=== PATIENT | male | born 1950 | race Caucasian/White ===

== ENCOUNTER 2016-11-10 22:32 | Emergency (ER) | payer MEDICARE, MEDICAID ==
[~2016-11-10] VITALS: Ht 180.3 cm; Wt 77.3 kg
[~2016-11-10 22:32] MED LIST: CARI350T PO; CLON1TAB PO; GABA-502 PO; MORP30TA PO; OXYC30TA48 PO; QUET200T PO
[2016-11-10 22:35] VITALS: BP 97/61; PULSE 136; RESP 16; O2SAT 98
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
[2016-11-10] MEDS ORDERED: 0.9% Sodium Chloride 1,000 ML IV ONE (22:54)
[2016-11-10] MEDS ORDERED: HYDROmorphone 1 mg/mL Inj IVPUSH ONE (23:00)
[2016-11-10 23:06] LABS: BASOPHILS % (AUTO) 0.4 % (0-3); EOSINOPHILS % (AUTO) 0.4 % (0-5); MONOCYTES % (AUTO) 7.8 % (4-12); Mean Corpuscular Hemoglobin 29.5 pg (27.0-35.0); Mean Corpuscular Volume 96.1 fL (81-100); NEUTROPHILS % (AUTO) 69.7 % (40-74); Platelet Count 115 bil/L (150-400)
[2016-11-10 23:31] LABS: INR 1.15 ratio
[2016-11-10 23:43] LABS: Magnesium 1.9 mg/dL (1.6-2.6)
[2016-11-11 01:23] VITALS: BP 102/62; PULSE 108; RESP 16; O2SAT 96
--- NOTE | 2016-11-11 08:00 | DRSVH ---
PROCEDURE: X-RAY CHEST ONE VIEW, PORTABLE ([id number]) INDICATIONS: fall, trauma TECHNIQUE: One view of the chest was acquired. COMPARISON: 10/17/2016 FINDINGS: Surgical changes and devices: Median sternotomy. Multiple surgical clips over the left mediastinum. Lungs and pleura: Consolidation in the right midlung field is considerably smaller. Atelectasis/infil trate in the left lower lobe is also improved. Mediastinum: Mediastinal contours appear normal. Heart size is normal. Bones and chest wall: No suspicious bony lesions. No displaced right rib fractures seen. Overlying soft tissues appear unremarkable. IMPRESSION: Improving right middle lobe and left lower lobe pneumonia. Postoperative changes. No acut e posttraumatic findings. Right-sided rib series may be of additional value. Dictated by: John Guevara M.D. on 11/11/2016 at 7:58 Approved by: John Guevara M.D. on 11/11/2016 at 7:58
--- NOTE | 2016-11-11 09:35 | DRSVH ---
PROCEDURE: CT CHEST, ABDOMEN AND PELVIS WITH CONTRAST ([id number]) INDICATIONS: fall, right flank & lateral abdomen trauma TECHNIQUE: After the administration of intravenous contrast, 5 mm thick sections acquired from the lung apices t o the symphysis. 5 mm thick coronal and sagittal reformats were acquired. Additional 7 mm thick cor onal maximum intensity projection (MIP) reformats acquired through the lungs. Optional 10-minute del ayed imaging may be performed from the kidneys to the bladder. For radiation dose reduction, the fol lowing was used: automated exposure control, adjustment of mA and/or kV according to patient size. COMPARISON: [facility], CT, CT ANGIO CHEST PE, 10/17/2016, 19:55. [facility], CT, CT CHEST ABD PELVIS W CON, 08/23/2016, 20:58. FINDINGS: Image quality: Excellent. CHEST: Lungs: There is moderate centrilobular emphysema with an apical predominance. Consolidation and volum e loss is present at the inferior aspect of the right upper lobe. The right hilar mass is decreased i n size when compared to study dated 08/23/16. No pulmonary laceration or contusion. There is a small low density right pleural effusion similar in size to the study dated 10/17/16. Mediastinum: No mediastinal hematomas. Heart size is normal. No pericardial effusion. Thoracic ao rta and pulmonary arteries demonstrate normal size and enhancement. Scattered atheromatous calcificat ions are present within the aortic arch. The multiple large mediastinal and right hilar lymph nodes v isualized on the study dated 08/23/16 have markedly decreased in size. For example, a subcarinal lymp h node now measures 1.5 cm in diameter and previously measured 3.4 cm in diameter. Esophagus is sudha l in caliber. No hiatal hernia. Chest wall: Patient is status post median sternotomy. No rib fractures. No subcutaneous emphysema. No axillary or supraclavicular adenopathy. Thyroid gland is unremarkable. ABDOMEN: Solid organs: The liver and spleen are normal in size. The spleen demonstrates normal enhancement. Th ere is a marked decrease in the size and number of the multiple centrally hypodense, rim-enhancing le sions within the liver. Gallbladder is unremarkable. Biliary system is non-dilated. Pancreas enhanc es normally, without transection. No adrenal hematomas. Both kidneys enhance normally, without hydr onephrosis or lacerations. Peritoneum and bowel: No free fluid or air. Unenhanced bowel loops demonstrate normal wall thicknes s and caliber. Nodes and vessels: No retroperitoneal or mesenteric adenopathy. Aorta and inferior vena cava are no rmal in size and enhancement. There are scattered atheromatous calcifications throughout the aorta an d iliac arteries bilaterally. IVC filter is redemonstrated. Miscellaneous: No ventral hernias. PELVIS: Genitourinary: Bladder wall thickness is normal. Miscellaneous: No inguinal hernias or adenopathy. Bones: Pelvic ring and hip joints appear intact. No vertebral compression fractures. The bilateral femoral heads have a patchy, sclerotic appearance which is new when compared with the study dated . No deformity of the femoral heads. IMPRESSION: 1. No acute cardiopulmonary or intra-abdominal trauma. 2. Decreased size of the right perihilar mass, decreased right hilar and mediastinal adenopathy, and decreased hepatic hypodense lesions suggesting response to therapy. 3. New bilateral sclerotic appearance of the femoral heads. Differential considerations include early avascular necrosis and bony metastasis. Nonemergent MRI of the pelvis with and without contrast may be helpful to further characterize this finding. Dictated by: Starla Medley M.D. on 11/11/2016 at 9:32 Approved by: Starla Medley M.D. on 11/11/2016 at 9:32
[2017-03-29] MEDS ORDERED: MORP15TA PO (11:41)
== END 2016-11-11 01:24 | disposition home or self-care (01) ==
LOC: SED 22:32
DX: S20.211A Contusion of right front wall of thorax, initial encounter (principal); W01.198A Fall on same level from slipping, tripping and stumbling with subsequent striking against other object, initial encounter; Y92.009 Unspecified place in unspecified non-institutional (private) residence as the place of occurrence of the external cause; Y93.89 Activity, other specified; Y99.8 Other external cause status; C34.90 Malignant neoplasm of unspecified part of unspecified bronchus or lung; I10 Essential (primary) hypertension; I48.0 Paroxysmal atrial fibrillation; C22.9 Malignant neoplasm of liver, not specified as primary or secondary; I25.2 Old myocardial infarction; I25.10 Atherosclerotic heart disease of native coronary artery without angina pectoris; F17.200 Nicotine dependence, unspecified, uncomplicated; Z86.711 Personal history of pulmonary embolism; Z87.828 Personal history of other (healed) physical injury and trauma; Z86.718 Personal history of other venous thrombosis and embolism; Z95.1 Presence of aortocoronary bypass graft; Z88.6 Allergy status to analgesic agent; Z88.0 Allergy status to penicillin; Z88.8 Allergy status to other drugs, medicaments and biological substances
CPT/HCPCS: 36415; 71010; 71260; 74177; 80053; 83735; 85025; 85610; 93005; 96361; 96374; 99285; J1170; J7030; Q9967

== ENCOUNTER 2017-04-12 20:40 | Inpatient (IN) | payer MEDICARE, MEDICAID ==
[~2017-04-12] VITALS: Ht 180.3 cm; Wt 64.9 kg
[~2017-04-12 20:40] MED LIST changes: +MORP15TA PO
[2017-04-12 20:49] VITALS: BP 118/70; PULSE 99; RESP 20; O2SAT 96
--- NOTE | 2017-04-12 21:28 | ED.REPORT ---
HPI-General Illness Date of Service Apr 12, 2017 ED Provider: Thony Lo MD Patient is a 66 year old male with a history of stage 4 lung cancer with liver metastases, CABG, COPD and CHF who presents to the ED complaining of worsening back pain for the past 5 days. Associated symptoms include pleuritic chest pain , fever, intermittent hemoptysis and hematemesis, nausea and leg swelling. He describes the pain as stabbing and that he has tried using his pain medication but it has not been helping. Patient recently finished his chemotherapy treatment. Nursing Notes Stated Complaint: BACK PAIN Chief Complaint: Respiratory Complaints Nursing Notes Reviewed: Yes Allergies: Coded Allergies: NSAIDS (Non-Steroidal Anti-Inflamma (Verified Allergy, Severe, Rash, 10/17) Penicillins (Verified Allergy, Severe, Rash, 10/17/16) aspirin (Verified Allergy, Mild, 10/17/16) CAUSES LIPS TO SWELL cyclobenzaprine HCl (Verified Adverse Reaction, Intermediate, Nausea, Vomiting, 10/17/16) Scheduled Carisoprodol (Soma) 350 Mg Tablet 350 MG PO TID Gabapentin (Gabapentin) 300 Mg Capsule 300 PO HS Morphine Sulfate (Morphine Sulfate) 30 Mg Tablet 30 MG PO BID Morphine Sulfate (Morphine Sulfate) 15 Mg Tablet 15 MG PO BID Quetiapine Fumarate (Seroquel) 200 Mg Tablet 250-300 MG PO HS Scheduled PRN Clonazepam (Klonopin) 1 Mg Tablet 1 MG PO QID PRN PRN For Anxiety Oxycodone (Roxicodone) 30 Mg Tablet 30 MG PO Q3HR PRN PRN For Pain General Time Seen by MD: 21:27 Chief Complaint Back pain Hx Obtained From: Patient Arrived By: Walk-in Sudden in Onset?: No Onset Occurred: 5 days ago Symptom Duration: Since onset Location: : Back: Chest Quality: Stabbing Severity: Current: Moderate Associated with: Reports: Cough, Nausea, Vomiting Recent Healthcare: Recent doctor visit, Recent hospitalization Similar Sx Previous: No Past Medical History Past Medical History Notes: Seen 08/22 in ED for A Flutter, CT scan of the chest positive for large right perihilar mass highly suspicious for primary bronchogenic carcinoma with mediastinal lymphadenopathy and out of maladies highly suspicious for hepatic metastatic disease Past Medical History Small cell carcinoma Pulmonary embolism 2010 myocardial infarction- coronary artery disease paroxysmal atrial fibrillation previously on Warfarin 11/11/2016 PTSD Anxiety prostatitis Back Injury (traumatic back injury with herniated disc) history of lung cancer in 2011 - did not require treatment per patient DVT Reports: Hypertension Reports: Atrial flutter Past Surgical History back times 2, shoulder times 3, hand times 6, elbow aortic valve replacement Reports: Appendectomy, CABG Smoking History Light Tobacco Smoker Social History Denies using IV drugs Other Social History: Good social support, , College student Ambulatory Status Independent Review of Systems Full Review of Systems Constitutional: Reports: Fever, Malaise Respiratory: Reports: Hemoptysis, Pleuritic pain Cardiovascular: Reports: Chest pain GI: Reports: Hematemesis, Nausea, Vomiting, Denies: Abdominal pain Musculoskeletal: Reports: Back pain, Extremity swelling Skin: Denies Rash Complete sys rev & neg: except as marked. Physical Exam Vital Signs Vital Signs Date Time Temp Pulse Resp B/P Pulse Ox O2 Delivery O2 Flow Rate FiO2 04/12/17 22:19 93 18 95 Room Air 04/12/17 21:51 37.5 95 20 119/61 98 Room Air 04/12/17 20:49 37.5 99 20 118/70 96 Room Air Initial VS: Reviewed General/Constitutional: Awake, Alert, Well appearing Appearance / Presentation: Positive: Frail Head / Eyes: Atraumatic, Normocephalic, PERRL, EOMI Respiratory / Chest: Atraumatic, No respiratory distress rhonic in both lung bases, right worse than the left splinting on the right Cardiovascular: Heart rate NL, Regular rhythm, Heart sounds NL Abdomen: Atraumatic, Soft, Non-tender Lower Extremity / Pelvis / MS: Atraumatic, Inspection NL trace edema Skin: Atraumatic, Color NL, No rash, Warm, Dry Neurologic: Oriented X3, Speech NL, No motor deficits, No sensory deficits Psychiatric: Affect NL, Mood NL Interpretation & Diagnostics Lab Results Interpretation Result Diagram: 04/12/17222404/12/17 222 Test 04/12/17 22:25 04/12/17 22:50 White Blood Count 16.0th/mm3 (3.8-10.1) Red Blood Count 3.82mil/mm3 (4.40-5.80) Hemoglobin 11.2g/dL (13.8-17.2) Hematocrit 35.3% (41.0-50.0) Mean Corpuscular Volume 92.4fL (81-100) Mean Corpuscular Hemoglobin 29.3pg (27.0-35.0) Mean Corpuscular Hemoglobin Concent 31.7% (32.0-37.0) Red Cell Distribution Width 14.7% (12.3-15.4) Platelet Count 511bil/L (150-400) Neutrophils (%) (Auto) 76.3% (40-74) Lymphocytes (%) (Auto) 9.2% (14-46) Monocytes (%) (Auto) 13.5% (4-12) Eosinophils (%) (Auto) 0.2% (0-5) Basophils (%) (Auto) 0.1% (0-3) Band Neutrophils % 1% (1-5) Prothrombin Time 11.9sec (8.1-12.5) Prothromb Time International Ratio 1.11ratio Activated Partial Thromboplast Time 32.8sec (22.8-33.0) D-Dimer 2.19mg/L FEU (<0.50) Sodium Level 138mEq/L (134-144) Potassium Level 4.4mEq/L (3.5-5.2) Chloride Level 95mEq/L (97-108) Carbon Dioxide Level 27mmol/L (18-29) Blood Urea Nitrogen 29mg/dL (8-27) Creatinine 0.80mg/dL (0.76-1.27) Estimat Glomerular Filtration Rate 103mL/min (>59) Glucose Level 108mg/dL (60-99) Lactic Acid Level 2.4mmol/L (0.4-2.0) Calcium Level 9.0mg/dL (8.5-10.1) Magnesium Level 2.0mg/dL (1.6-2.6) Total Bilirubin 0.2mg/dL (0.0-1.2) Aspartate Amino Transf (AST/SGOT) 15U/L (0-50) Alanine Aminotransferase (ALT/SGPT) 14U/L (0-44) Alkaline Phosphatase 136U/L (25-160) Troponin T < 0.010ug/L (0.0-0.011) Pro-B-Type Natriuretic Peptide 1606pg/mL (0-376) Total Protein 7.4g/dL (6.4-8.4) Albumin 2.8g/dL (3.4-5.0) Procalcitonin 0.23ng/mL (0.00-0.08) Urine Color Yellow (YELLOW) Urine Appearance Clear (CLEAR,HAZY) Urine pH 7.5 (5.0-8.0) Urine Specific [place] 1.026 (1.003-1.035) Urine Protein Negativemg/dL (NEG,TRACE) Urine Glucose (UA) Negativemg/dL (NEGATIVE) Urine Ketones Negativemg/dL (NEGATIVE) Urine Occult Blood Negative (NEGATIVE) Urine Nitrite Negative (NEGATIVE) Urine Bilirubin Negative (NEGATIVE) Urine Urobilinogen Normalmg/dL (NORMAL) Urine Leukocyte Esterase Negative (NEGATIVE) Urine RBC 0-2/hpf (0-2) Urine WBC 0-5/hpf (0-5) Urine Epithelial Cells Occasional/hpf (NONE-MOD) Urine Crystals Amorphous phosphates Urine Bacteria None/hpf (NONE-FEW) Urine Hyaline Casts None/lpf (NONE) Urine Granular Casts None seen (NONE SEEN) Urine Waxy Casts None seen (NONE SEEN) Urine Red Blood Cell Casts None seen (NONE SEEN) Urine White Blood Cell Casts None seen (NONE SEEN) Urine Mucus Present (None Seen) Urine Trichomonas None seen (NONE SEEN) Urine Yeast None (NONE SEEN) Urine Culture Reflexed Not indicated ECG Interpretation ECG Interpretation: probable left atrial enlargement Time: 22:04 Interpreted by: ED physician Normal ECG Interpretation: Normal rate (93), Normal sinus rhythm X-Ray Chest Interpretation Chest Xray Interpretation: much more infiltration on right upper and mid lung since last x-ray View: Portable, 1 view Interpretation / Wet Read by: Wet read ED physician Re-Eval/Medical Decision Med Decision/Clinical Course 66-year-old recent diagnosis of stage IV lung cancer with liver metastases, presents with pleuritic right flank and rib pain, cough which is productive, and x-ray which shows fairly extensive infiltration. The extensive nature of his infiltration is new and reasonably accounts for his pain. No neurologic symptoms accompanying the back pain. Doubt new bony metastases, as he has recently been evaluated fully. Admitted now for pneumonia with potential hospital-acquired etiology. Begun with Levaquin, vancomycin, and cefepime, given penicillin allergy. He has uncontrolled pain at this point and was begun with Dilaudid in the emergency department. Subtherapeutic INR noted and needs heparinization pending reestablishment of adequate Coumadin dose. Transported stable and improved condition. Source of Hx: Old records Time of Eval: 22:34 Re-Evaluation/Progress Note: Discussed results and plan for admit. The patient understands and agrees to the plan. All questions were addressed. Consultation : Referral / Consult Name: Marleny Laura DO Consulted With: Hospitalist Call Returned at: 22:54 [employer] Engineer: Agrees with eval, Agrees with plan, Accepts admit Counseled Regarding: Diagnosis, Lab results, Need for admission Discharge & Departure Primary Impression: Pneumonia Pneumonia type: due to unspecified organism Laterality: right Lung location : upper lobe of lung Qualified Code: J18.1 - Lobar pneumonia, unspecified organism Additional Impressions: Lung cancer Laterality: unspecified laterality Lung location: unspecified part of lung Qualified Code: C34.90 - Malignant neoplasm of unspecified part of unspecified bronchus or lung Pleuritic chest pain Subtherapeutic international normalized ratio (INR) Disposition: ADMITTED TO HOSPITAL Discharge Condition All VS Reviewed: Yes Condition: Stable Referrals: Dayami Malagon MD (PCP) Ignacio Attestation Portions of this note were transcribed by Barbara Ca. I, Dr. Lo personally performed the history, physical exam and medical decision-making; I reviewed and confirmed the accuracy of the information in the transcribed note. Signed by: Ignacio Salas, 04/12/17 and 6245 copies to: Dayami Malagon MD, Christopher W MD Apr 12, 2017 21:28 Indu Ca Apr 12, 2017 21:36
[2017-04-12] MEDS ORDERED: 0.9% Sodium Chloride 1,000 ML IV ONE (21:34)
[2017-04-12] MEDS ORDERED: Ondansetron 2 mg/mL 2 mL Inj IVPUSH ONE (21:35)
[2017-04-12] MEDS ORDERED: Albuterol 2.5 mg/3 mL Inhalation Solution NEB ONE (21:35)
[2017-04-12] MEDS ORDERED: Albuterol-Ipratropium 3 mL Inhalation Solution NEB ONE (21:35)
[2017-04-12 21:51] VITALS: BP 119/61; PULSE 95; RESP 20; O2SAT 98
[2017-04-12] MEDS: HYDROmorphone 1 mg/mL Inj IVPUSH PRN ×3 (22:01→23:44)
[2017-04-12 22:19] VITALS: PULSE 93; RESP 18; O2SAT 95
[2017-04-12] MEDS ORDERED: Cefepime Inj 2 GM in IV Premix 1 EACH IV ONE (22:35)
[2017-04-12] MEDS ORDERED: levoFLOXacin Inj 750 MG in IV Premix 1 EACH IV ONE (22:35)
[2017-04-12] MEDS ORDERED: Vancomycin Dose per Pharmacist XX ONE (22:35)
[2017-04-12] MEDS ORDERED: Vancomycin Inj 1,500 MG in 0.9% Sodium Chloride 500 ML IV ONE (22:50)
[2017-04-12 22:53] LABS: BASOPHILS % (AUTO) 0.1 % (0-3); EOSINOPHILS % (AUTO) 0.2 % (0-5); MONOCYTES % (AUTO) 13.5 % (4-12); Mean Corpuscular Hemoglobin 29.3 pg (27.0-35.0); Mean Corpuscular Volume 92.4 fL (81-100); NEUTROPHILS % (AUTO) 76.3 % (40-74); Platelet Count 511 bil/L (150-400)
[2017-04-12 23:13] LABS: D-Dimer 2.19 mg/L FEU (<0.50); INR 1.11 ratio
[2017-04-12 23:27] LABS: APPEARANCE,URINE CLEAR (CLEAR,HAZY); COLOR,URINE YELLOW (YELLOW); OCCULT BLOOD,URINE NEGATIVE (NEGATIVE); PH,URINE 7.5 (5.0-8.0); UROBILINOGEN,URINE NORMAL (NORMAL)
[2017-04-12 23:39] LABS: TROPONIN T < 0.010 ug/L (0.0-0.011)
[2017-04-12 23:46] VITALS: BP 115/50; PULSE 102; RESP 20; O2SAT 92
[2017-04-12 23:57] VITALS: BP 115/50; PULSE 102; RESP 20; O2SAT 92
[2017-04-13 00:22] VITALS: BP 119/70; PULSE 101; RESP 20; O2SAT 94
--- NOTE | 2017-04-13 00:30 | NUR ---
Admission Note Pt admitted to [facility] from ER at 0020 on gurney, alert and orientedx3, back pain 8/10, Dilaudid given at ER prior to arrival. Cough intermittently green sputum per . Denies SOB at this time, denies n/v/fever/chills. BP 119/70, HR101 RR20, T36.9 SPO2 94% on RA. Course lung sounds and rhonchi bilaterally, right side worse, chest slightly asymmetric, right more prominent. HR regular, no murmur. Abdomen soft, mild tenderness at upper quadrant, BT active,trace edema at LEs. IV Cefepime and Levaquin running on arrival. with pt. Care ongoing.
--- NOTE | 2017-04-13 01:33 | NUR ---
Patient Left AMA Patient's requested to use hospital Oxygen in the patient's room. She has COPD and brings her own 4 tanks of O2 with her. After talked with charge nurse, ROBEL Fischer explained the hospital policy that patient's family are not allowed to use hospital Oxygen. Patient and family insisted, and the patient said "I am not going to stay here" if his cannot use hospital Oxygen. [employer] [facility] notified and came to further explained to the patient and family:Oxygen is considered prescribed treatment which it has to have doctor's prescription, and family cannot use he hospital oxygen unless they are admitted to the hospital. The patient requested RN to stop his IV antibiotic and insisted leaving AMA despite RN tried to convince him to stay by informing him the severity of his illness and risks of stopping treatments. AMA Paper work signed by the patient. IV removed, gauze dressing applied. The patient left the floor at 0105 with all his belongings. RN wheeled the patient out and assisted him into the car, family drove the patient home. Addendum: 04/13/17 at 0328 by ROSA DUNLAP RN Night hospitalist [place] informed by charge nurse.
--- NOTE | 2017-04-13 08:42 | DRSVH ---
PROCEDURE: X-RAY CHEST ONE VIEW, PORTABLE ([id number]) INDICATIONS: SHORTNESS OF BREATH, cough, lung caNCER in treatment TECHNIQUE: One view of the chest was acquired. COMPARISON: [facility], CT, CT CHEST ABD PELVIS W CON, 03/15/2017, 10:07. [facility], CR, XR CHEST 1VW (PORTABLE), 11/10/2016, 23:01. FINDINGS: Surgical changes and devices: Post median sternotomy. Lungs and pleura: Diffuse airspace opacity present involving the right upper lobe in this patient his tory of right hilar mass. Left lung is clear. Mediastinum: Mediastinal contours appear normal. Heart size is normal. Bones and chest wall: No suspicious bony lesions. Overlying soft tissues appear unremarkable. IMPRESSION: Dense opacification of the right upper lobe in this patient with history of right hilar m ass likely related to central obstruction with postobstructive atelectasis versus pneumonia. Correla te clinically. Dictated by: Melvin Danielle RRA Interpreted: Pham Woodard MD on 04/13/2017 at 8:38 Transcribed by: CLAUDIA on 04/13/2017 at 8:42 Approved by: Pham Woodard MD, PhD on 04/13/2017 at 11:25
[2017-04-13] MEDS ORDERED: QUET50TA55 PO (21:59)
[2017-04-13] MEDS ORDERED: ONDA4TAB6 PO (22:04)
[2017-04-13] MEDS ORDERED: PROC10TA PO (22:04)
== END 2017-04-13 01:10 | disposition left against medical advice (07) | DRG 194 ==
LOC: SED 20:40 → MPC 23:36
PROVIDERS: ADMIT Internal Medicine; ATTEND Internal Medicine
DX: J18.9 Pneumonia, unspecified organism (principal); C34.90 Malignant neoplasm of unspecified part of unspecified bronchus or lung; J44.9 Chronic obstructive pulmonary disease, unspecified; F17.210 Nicotine dependence, cigarettes, uncomplicated; Z88.0 Allergy status to penicillin; Z86.711 Personal history of pulmonary embolism; I25.2 Old myocardial infarction; Z95.1 Presence of aortocoronary bypass graft; Z99.81 Dependence on supplemental oxygen

== ENCOUNTER 2017-04-13 19:32 | Inpatient (IN) | payer MEDICARE, MEDICAID ==
[~2017-04-13] VITALS: Ht 180.3 cm; Wt 63.2 kg
[2017-04-13 20:02] VITALS: BP 113/72; PULSE 99; RESP 12; O2SAT 96
--- NOTE | 2017-04-13 20:06 | ED.REPORT ---
HPI-Dyspnea / Wheezing Date of Service Apr 13, 2017 ED Provider: Deangelo Tolbert MD Patient is a 66 year old male with a hx of lung cancer with mets and atrial flutter who presents to the ED after leaving the hospital AMA yesterday and diagnosed with pneumonia. Dr. Norwood recommended that he return. Associated symptoms include cough, sore throat, fever, and pleuritic pain. He denies SOB, nasal congestion, or any other symptoms. Patient was admitted last night for healthcare associated pneumonia and left because his could not stay since she requires oxygen. He has not been on antibiotics since leaving. He takes oxycodone and morphine daily. Nursing Notes Stated Complaint: CANCER, PNEUMONIA Chief Complaint: Respiratory Complaints Nursing Notes Reviewed: Yes Allergies: Coded Allergies: NSAIDS (Non-Steroidal Anti-Inflamma (Verified Allergy, Severe, Rash, 10/17) Penicillins (Verified Allergy, Severe, Rash, 10/17/16) aspirin (Verified Allergy, Mild, 10/17/16) CAUSES LIPS TO SWELL cyclobenzaprine HCl (Verified Adverse Reaction, Intermediate, Nausea, Vomiting, 10/17/16) Scheduled Carisoprodol (Soma) 350 Mg Tablet 350 MG PO TID Clonazepam (Klonopin) 1 Mg Tablet 1 MG PO QID Gabapentin (Gabapentin) 300 Mg Capsule 300 PO HS Morphine Sulfate (Morphine Sulfate) 30 Mg Tablet 30 MG PO BID TAKE WITH 15 MG TABLET (=45 MG TOTAL) Morphine Sulfate (Morphine Sulfate) 15 Mg Tablet 15 MG PO BID TAKE WITH 30 MG TABLET (=45 MG TOTAL) Ondansetron (Zofran) 4 Mg Tablet 4 MG PO QID STAGGER W/ COMPAZINE Prochlorperazine Maleate (Prochlorperazine) 10 Mg Tablet 10 MG PO QID STAGGER WITH ZOFRAN Quetiapine Fumarate (Seroquel) 200 Mg Tablet 200 MG PO HS TAKE WITH 50 MG TABLET (=250 MG TOTAL) Quetiapine Fumarate (Quetiapine Fumarate) 50 Mg Tablet 50 MG PO HS TAKE WITH 200 MG TABLET (=250 MG TOTAL) Scheduled PRN Oxycodone (Roxicodone) 30 Mg Tablet 30 MG PO Q3HR PRN PRN For Pain TAKES SCHEDULED General Time Seen by MD: 20:04 Chief Complaint Other (Pneumonia ) Hx Obtained From: Patient, Spouse Arrived By: Walk-in Recent Healthcare: Recent doctor visit, Recent hospitalization Similar Sx Previous: Yes Past Medical History Past Medical History Notes: Seen 08/22 in ED for A Flutter, CT scan of the chest positive for large right perihilar mass highly suspicious for primary bronchogenic carcinoma with mediastinal lymphadenopathy and out of maladies highly suspicious for hepatic metastatic disease Past Medical History Small cell carcinoma Pulmonary embolism 2010 myocardial infarction- coronary artery disease paroxysmal atrial fibrillation previously on Warfarin 11/11/2016 PTSD Anxiety prostatitis Back Injury (traumatic back injury with herniated disc) history of lung cancer in 2010 - did not require treatment per patient DVT Lung cancer with mets Reports: Hypertension Reports: Atrial flutter Past Surgical History back times 2, shoulder times 3, hand times 6, elbow aortic valve replacement Reports: Appendectomy, CABG Smoking History Light Tobacco Smoker Social History Denies using IV drugs Other Social History: Good social support, , College student Ambulatory Status Independent Review of Systems Constitutional: Reports: Fever Ears / Nose / Throat: Reports: Sore throat, Denies: Nasal congestion Respiratory: Reports: Non-productive cough, Pleuritic pain, Denies: Shortness of breath Complete sys rev & neg: except as marked. Physical Exam Initial Vital Signs Vital Signs (First) Date Time Temp Pulse Resp B/P Pulse Ox O2 Delivery O2 Flow Rate FiO2 04/13/17 20:02 36.9 99 12 113/72 96 Initial VS: Reviewed, Vital signs normal Head / Eyes: Atraumatic, Normocephalic Skin: Warm, Dry Neurologic: Alert, Oriented, Nonfocal Psychiatric: Mood/affect normal, Behavior normal, Normal thought content General/Constitutional: Awake, Alert, Well developed, Not toxic appearing Neck: Full range of motion Respiratory / Chest: Breath sounds = bilat, No respiratory distress Cardiovascular: Heart rate NL, Regular rhythm, Heart sounds NL, No gallop, No murmurs, No rubs Abdomen: Soft, Non-tender Interpretation & Diagnostics Lab Results Interpretation Result Diagram: 04/13/17204704/13/172047 Test 04/13/17 20:48 White Blood Count 10.7th/mm3 (3.8-10.1) Red Blood Count 3.77mil/mm3 (4.40-5.80) Hemoglobin 11.1g/dL (13.8-17.2) Hematocrit 35.2% (41.0-50.0) Mean Corpuscular Volume 93.4fL (81-100) Mean Corpuscular Hemoglobin 29.4pg (27.0-35.0) Mean Corpuscular Hemoglobin Concent 31.5% (32.0-37.0) Red Cell Distribution Width 14.9% (12.3-15.4) Platelet Count 455bil/L (150-400) Neutrophils (%) (Auto) 74.0% (40-74) Lymphocytes (%) (Auto) 10.3% (14-46) Monocytes (%) (Auto) 14.3% (4-12) Eosinophils (%) (Auto) 0.6% (0-5) Basophils (%) (Auto) 0.1% (0-3) Sodium Level 137mEq/L (134-144) Potassium Level 3.9mEq/L (3.5-5.2) Chloride Level 98mEq/L (97-108) Carbon Dioxide Level 27mmol/L (18-29) Blood Urea Nitrogen 19mg/dL (8-27) Creatinine 0.70mg/dL (0.76-1.27) Estimat Glomerular Filtration Rate 120mL/min (>59) Glucose Level 120mg/dL (60-99) Lactic Acid Level 1.5mmol/L (0.4-2.0) Calcium Level 9.1mg/dL (8.5-10.1) Magnesium Level 1.9mg/dL (1.6-2.6) Total Bilirubin 0.2mg/dL (0.0-1.2) Aspartate Amino Transf (AST/SGOT) 16U/L (0-50) Alanine Aminotransferase (ALT/SGPT) 13U/L (0-44) Alkaline Phosphatase 131U/L (25-160) Troponin T 0.010ug/L (0.0-0.011) Pro-B-Type Natriuretic Peptide 541.7pg/mL (0-376) Total Protein 6.8g/dL (6.4-8.4) Albumin 2.5g/dL (3.4-5.0) Procalcitonin 0.19ng/mL (0.00-0.08) Hold Bennett Top Tube Received (Received) ECG Interpretation ECG Interpretation: sinus rate 90 probable left atrial enlargement no acute changes Time: 20:29 Interpreted by: ED physician X-Ray Chest Interpretation Chest Xray Interpretation: IMPRESSION: Increased right upper lung dense opacification. Prior CABG. The prior CT scanning had raise concern for a mass lesion at the right hilum. The appearance may reflect post obstructive pneumonia or postobstructive retention of pulmonary secretions. Dictated by: Nabil Phan M.D. on 04/13/2017 at 20:54 Approved by: Nabil Phan M.D. on 04/13/2017 at 20:55 View: Portable, 1 view Interpretation / Wet Read by: Interpret - Radiologist Re-Eval/Medical Decision Med Decision/Clinical Course 66-year-old with known advanced lung cancer and she did emergency department last night with a healthcare associated pneumonia. He left the hospital AGAINST MEDICAL ADVICE but did receive antibiotic coverage including vancomycin and cefepime cefepime and Levaquin. He has now returned to the hospital and is interested in readmission. The patient appears stable at present, white count is improved he also has significant complaints of pain and history of opiate habituation. Blood cultures were obtained, I sought out culture results from last night which are not yet available, he was given cefepime, vancomycin and Levaquin again and will be admitted to the hospitalist service. Re-Evaluation/Progress #1: Time of Eval: 20:24 )( Re-Eval Resp / Chest: Breath sounds normal Re-Evaluation/Progress Note: Discussed plan for admission. Patient understands and agrees with plan. All questions addressed at this time. Re-Evaluation/Progress #2: Time of Eval: 21:42 )( Re-Eval Resp / Chest: Breath sounds normal Re-Evaluation/Progress Note: Rechecked pt who is sleeping. Discussed need for admission, Patient understands and agrees with plan. All questions addressed at this time. Consultation #1: Referral / Consult Name: Marleny Laura DO Consulted With: Hospitalist Call Returned at: 20:23 Unload Associate: Agrees with eval, Agrees with plan Note: Discussed pt case. Re-evaluate pt with intent to admit. Consultation #2: Referral / Consult Name: Marleny Laura DO Consulted With: Hospitalist Call Returned at: 21:38 Unload Associate: Will see patient, Agrees with eval, Agrees with plan, Accepts admit Note: Discussed pt case. Accepts admit. Counseled Regarding: Diagnosis, Need for admission Discharge & Departure Impression: Primary Impression: Pneumonia Pneumonia type: due to unspecified organism Laterality: unspecified laterality Lung location: unspecified part of lung Qualified Code: J18.9 - Pneumonia, unspecified organism Disposition: ADMITTED TO HOSPITAL Discharge Condition All VS Reviewed: Yes Condition: Stable Referrals: Dayami Malagon MD (PCP) Scribe Attestation Portions of this note were transcribed by Lalitha Galarza. I, Dr. Tolbert personally performed the history, physical exam and medical decision-making; I reviewed and confirmed the accuracy of the information in the transcribed note. Signed by: Lalitha Galarza 04/13/17, 2149 copies to: Dayami Malagon MD, Donald L MD Apr 13, 2017 20:06 LALITHA GALARZA Apr 13, 2017 20:17
--- NOTE | 2017-04-13 20:57 | DRSVH ---
PROCEDURE: X-RAY CHEST ONE VIEW, PORTABLE ([id number]) INDICATIONS: recent pneumonia TECHNIQUE: One view of the chest was acquired. COMPARISON: [facility], CT, CT CHEST ABD PELVIS W CON, 03/15/2017, 10:07. [facility], CR, XR CHEST 1VW (PORTABLE), 04/12/2017, 21:59. FINDINGS: Surgical changes and devices: Sternotomy wires, presumed prior CABG.. Lungs and pleura: No pleural effusions or pneumothorax. Lungs are abnormal with dense opacification right upper lung above the minor fissure, slightly increased. Mediastinum: Mediastinal contours appear normal. Heart size is normal. Bones and chest wall: No suspicious bony lesions. Overlying soft tissues appear unremarkable. IMPRESSION: Increased right upper lung dense opacification. Prior CABG. The prior CT scanning had raise concern for a mass lesion at the right hilum. The appearance may ref lect post obstructive pneumonia or postobstructive retention of pulmonary secretions. Dictated by: Nabil Phan M.D. on 04/13/2017 at 20:54 Approved by: Nabil Phan M.D. on 04/13/2017 at 20:55
--- NOTE | 2017-04-13 20:57 | PCM.HPMED ---
Subjective Date of Service Apr 13, 2017 Primary Provider: Admitting Physician: Primary Care Physician: Dayami Malagon MD Attending Physician: Admit Status: From the Emergency Department Chief Complaint: Shortness of breath History of Present Illness: This is a 66-year-old male with past medical history significant for extensive stage small cell lung cancer, coronary artery disease status post CABG, atrial fibrillation, congestive heart failure, COPD, and chronic pain with opioid dependence who presents for shortness of breath. The patient was most recently in the hospital yesterday evening at which time he left against medical advice. The patient returns today at the advice of his oncologist. The patient states that over the last 2 weeks he has developed progressively worsening shortness of breath and cough productive for yellow sputum. There are some streaks of blood in the cough now.. This is associated with subjective fevers, nausea, and several episodes of nonbloody vomiting. The patient states that he feels fatigued with decreased appetite and fluid intake. He also admits to achy and at times sharp chest pain located in the right side of his chest that is worse when he presses down on the area. Other areas of pain including his right upper quadrant of the abdomen (patient has known liver metastases). He denies any diarrhea, diaphoresis, numbness or tingling extremities. The patient is followed by [facility]. He has extensive small cell lung cancer with metastases to liver, lymph node, liver, bone, and brain. He is status post 6 cycles of palliative chemotherapy with carboplatin and etoposide and whole brain radiotherapy. His last CT chest on 03/15/2017 showed an unchanged appearance of right hilar mass as well as scarring/post obstructive right midlung, unchanged appearance of osseous metastatic disease, posterior right upper lobe nodular opacities. In the emergency department initial vital signs were temperature 6.9 Celsius, pulse 99, respiratory rate 12, blood pressure 113/72, satting at 96% on room air. On 04/12/2017 and lactic acid 2.4 and a procalcitonin 0.23. Laboratory values today were significant for WBC 10.7, hemoglobin 11.1, hematocrit 35.2, platelets 455. BUN 19, creatinine 0, glucose 120, troponin 0.0 and 0, pro BNP 541.7, albumin 2.5. In the emergency department on 04/12/2017 before he left against medical advice he was given a dose of Levaquin, cefepime, and vancomycin. Review of Systems: A comprehensive review of systems was conducted with the patient and found to be negative except as above in the History of Present Illness. Allergies Coded Allergies: NSAIDS (Non-Steroidal Anti-Inflamma (Verified Allergy, Severe, Rash, 10/17) Penicillins (Verified Allergy, Severe, Rash, 10/17/16) aspirin (Verified Allergy, Mild, 10/17/16) CAUSES LIPS TO SWELL cyclobenzaprine HCl (Verified Adverse Reaction, Intermediate, Nausea, Vomiting, 10/17/16) Home Medications Carisoprodol 50 mg 3 times a day Clonazepam 1 mg 4 times a day Gabapentin 3 mg at night Morphine sulfate 30 mg twice a day Morphine sulfate 15 mg twice a day Oxycodone 30 mg every 3 hours as needed Quetiapine fumarate 250mg PO HS. PMH Chronic pain syndrome with opioid dependence Extensive stage small cell lung cancer metastases to lymph nodes, liver, bone, and brain status post 6 cycles of palliative chemotherapy and whole brain radiotherapy Coronary artery disease status post CABG Atrial fibrillation Congestive heart failure COPD Pulmonary embolism 2010. DVT Hypertension PTSD. Last echocardiogram on 08/17/2011: Left normal size, ejection fraction 55-60%, base of the right ventricle appears mildly dilated, with ventricular systolic function normal, mild to moderate tricuspid regurgitation, left ventricular systolic pressure estimated 30-35 Hg, moderate pulmonic regurgitation. Surgical History CABG Aortic valve replacement Lumbar spine surgery Right shoulder surgery Family History Father: Emphysema. Social History Hx Alcohol Use: No Hx Substance Use: No Hx Tobacco Use: Yes (5-6 DAILY) Smoking Status: Light Tobacco Smoker Exam Vital Signs Vital Sign - Last Date Time Temp Pulse Resp B/P Pulse Ox O2 Delivery O2 Flow Rate FiO2 04/13/17 20:02 36.9 99 12 113/72 96 Exam General: Frail thin man,, appropriately interactive HEENT: Normocephalic, atraumatic. External ears without defect. Pupils equal, round, and reactive to light and accommodation. Anicteric sclerae, moist conjunctivae, and no lid lag. Dry oral mucosa. Neck: Supple with full range of motion. Cardiovascular: Regular rate and rhythm with no murmurs, rubs, or gallops appreciated Pulmonary: Clear to auscultation bilaterally with crackles and rhonchi throughout.. Normal respiratory effort with no use of accessory muscles. Abdomen: Bowel tones present. Soft, tender to palpation in right upper quadrant without rebound or guarding, nondistended Extremities: No clubbing, cyanosis, edema appreciated. Skin: Normal temperature, turgor, and texture; no rash, ulcers, or subcutaneous nodules appreciated. Neurological: Cranial nerves grossly intact. Normal muscle strength, tone, and bulk. Reflexes, coordination, and sensory function within normal limits. No known gait impairment. Psychiatric: Normal mood and affect. Alert and oriented to person, place, and time. Lab and Diagnostics X-Rays, CTs and MRIs Chest x-ray completed on 04/13/2017: IMPRESSION: Increased right upper lung dense opacification. Prior CABG. The prior CT scanning had raise concern for a mass lesion at the right hilum. The appearance may reflect post obstructive pneumonia or postobstructive retention of pulmonary secretions. Dictated by: Nabil Phan M.D. on 04/13/2017 at 20:54 Assessment & Plan This is a 66-year-old male with past medical history significant for COPD, CHF atrial fibrillation, coronary disease, and extensive small cell lung cancer who presents for shortness of breath, productive cough, subjective fevers, and right -sided chest pain. Chest x-ray is significant for right-sided pneumonia. Patient has a history significant for pulmonary embolus as well. Differential includes pneumonia, lung abscess, pulmonary embolus, worsening neoplasm, COPD exacerbation. Likely this is due to a pneumonia. Doubt pulmonary embolus as patient is afebrile and not tachycardic. Furthermore, his white blood cell count has improved since receiving doses of antibiotics yesterday evening point towards an infectious process. He also had a progressive time and that was elevated yesterday. Repeat pro calcitonin is pending. Healthcare associated pneumonia, present on admission, ongoing: -Patient has extensive small cell carcinoma of lung with multiple sites of metastasis. He is in a immunosuppressed state and we will cover with broad- spectrum antibiotics. -Patient does not meet SIRS criteria -Imaging has been reviewed and is concerning for PNA -Vancomycin (dosed by pharmacy), cefepime, Levaquin ordered. -Blood cultures, sputum cultures, Legionella antigen, strep pneumo antigen, lactic acid, pro calcitonin pending. -Fluids at 80 ml/hr. Chronic normocytic anemia, present on admission, ongoing: -On admit hemoglobin 11.1, hematocrit 35.2, MCV 93.4. Review of past medical records shows stability. -CBC in the a.m. Elevated blood glucose, present on admission, ongoing: -Admit blood glucose 120. -A1c ordered. History of congestive heart failure, present on admission: -Patient's family reports echocardiogram several months ago in [place] which showed heart failure. -We will order echocardiogram for morning. -Currently patient is dehydrated due to decreased appetite and fluid intake. -Daily weights ordered. Extensive stage small cell lung cancer metastases to lymph nodes, liver, bone, and brain, present on admission, ongoing: -He has extensive small cell lung cancer with metastases to liver, lymph node, liver, bone, and brain. Chronic pain with opiate dependence, present on admission, ongoing: -Continue home pain medications. Anxiety/depression, present on admission, ongoing: -Continue clonazepam. Patient is at risk for respiratory depression due to large opiate doses and clonazepam. Will monitor respiratory status. Naltrexone ordered if needed -Continue to monitor. Reported history of atrial fibrillation, present on admission, stable: -EKG shows sinus rhythm with rate of 90. Left atrial enlargement. Incomplete right bundle branch block. -Patient placed on to telemetry. DVT prophylaxis with heparin. Patient is admitted under inpatient status with expected length of stay greater than 2 midnights due to severity of presenting symptoms, risk of adverse event, and complexity of treatment plan. Attending Statement The patient was seen and examined together with house staff on 04/14/2017 and I agree with the history, exam and plan as outlined in the note above. Ponce Arana DO Apr 13, 2017 20:57 Marleny Laura DO Apr 14, 2017 03:56
[2017-04-13 21:00] LABS: BASOPHILS % (AUTO) 0.1 % (0-3); EOSINOPHILS % (AUTO) 0.6 % (0-5); MONOCYTES % (AUTO) 14.3 % (4-12); Mean Corpuscular Hemoglobin 29.4 pg (27.0-35.0); Mean Corpuscular Volume 93.4 fL (81-100); Platelet Count 455 bil/L (150-400)
[2017-04-13] MEDS: HYDROmorphone 1 mg/mL Inj IVPUSH PRN ×2 (21:10→22:24)
[2017-04-13 21:23] LABS: TROPONIN T 0.01 ug/L (0.0-0.011)
[2017-04-13] MEDS ORDERED: Vancomycin Inj 1,000 MG in IV Premix 1 EACH IV ONE (21:40)
[2017-04-13] MEDS ORDERED: levoFLOXacin Inj 750 MG in IV Premix 1 EACH IV ONE (21:40)
[2017-04-13] MEDS ORDERED: Cefepime Inj 2 GM in IV Premix 1 EACH IV ONE (21:40)
[2017-04-13] MEDS ORDERED: QUET50TA55 PO (21:59)
[2017-04-13 22:00] VITALS: BP 132/64; PULSE 94; RESP 16; O2SAT 98
[2017-04-13] MEDS ORDERED: ONDA4TAB6 PO (22:04)
[2017-04-13] MEDS ORDERED: PROC10TA PO (22:04)
[2017-04-13] MEDS ORDERED: Alum-Mag Hydrox-Simeth 30 mL Suspension PO PRN (22:15)
[2017-04-13] MEDS ORDERED: Polyethylene Glycol (PEG) 17 Gm Powder PO PRN (22:15)
[2017-04-13] MEDS ORDERED: fentaNYL-PF 50 mCg/mL 2 mL Inj IVPUSH PRN (22:15)
[2017-04-13] MEDS ORDERED: Albuterol-Ipratropium 3 mL Inhalation Solution NEB PRN (22:15)
[2017-04-13] MEDS: 0.9% Sodium Chloride 1,000 ML IV SCH (22:25)
[2017-04-13 22:48] VITALS: BP 107/58; PULSE 92; RESP 20; O2SAT 97
[2017-04-13 22:51] LABS: Magnesium 1.9 mg/dL (1.6-2.6)
[2017-04-13 23:15] VITALS: BP 111/72; PULSE 103; RESP 18; O2SAT 94
[2017-04-14] VITALS (8 sets, daily range): BP systolic 97–119; BP diastolic 58–69; PULSE 60–104; RESP 18–33; O2SAT 90–95
[2017-04-14] MEDS: Morphine ER 15 mg (MS Contin) Tablet PO SCH ×3 (00:10→20:16)
[2017-04-14] MEDS: Heparin 5,000 Unit/mL Inj SUBQ SCH ×4 (00:30→23:55)
--- NOTE | 2017-04-14 01:32 | PCM.CONPHA ---
Subjective Date of Service: Apr 14, 2017 Requesting Provider: Ponce Arana DO Shortness of breath Reason for Pharmacy Consult: Vancomycin Dosing Objective Vital Signs Date Time Temp Pulse Resp B/P Pulse Ox O2 Delivery O2 Flow Rate FiO2 04/13/17 23:15 37.2 103 18 111/72 94 Room Air 04/13/17 22:48 92 20 107/58 97 Room Air 04/13/17 22:00 94 16 132/64 98 Room Air 04/13/17 20:02 36.9 99 12 113/72 96 Weight (Kilograms): 62.900 Height (Feet): 5 Height (Inches): 11.00 Test 04/13/17 20:48 White Blood Count 10.7th/mm3 (3.8-10.1) Red Blood Count 3.77mil/mm3 (4.40-5.80) Hemoglobin 11.1g/dL (13.8-17.2) Hematocrit 35.2% (41.0-50.0) Mean Corpuscular Volume 93.4fL (81-100) Mean Corpuscular Hemoglobin 29.4pg (27.0-35.0) Mean Corpuscular Hemoglobin Concent 31.5% (32.0-37.0) Red Cell Distribution Width 14.9% (12.3-15.4) Platelet Count 455bil/L (150-400) Neutrophils (%) (Auto) 74.0% (40-74) Lymphocytes (%) (Auto) 10.3% (14-46) Monocytes (%) (Auto) 14.3% (4-12) Eosinophils (%) (Auto) 0.6% (0-5) Basophils (%) (Auto) 0.1% (0-3) Sodium Level 137mEq/L (134-144) Potassium Level 3.9mEq/L (3.5-5.2) Chloride Level 98mEq/L (97-108) Carbon Dioxide Level 27mmol/L (18-29) Blood Urea Nitrogen 19mg/dL (8-27) Creatinine 0.70mg/dL (0.76-1.27) Estimat Glomerular Filtration Rate 120mL/min (>59) Glucose Level 120mg/dL (60-99) Lactic Acid Level 1.5mmol/L (0.4-2.0) Calcium Level 9.1mg/dL (8.5-10.1) Magnesium Level 1.9mg/dL (1.6-2.6) Total Bilirubin 0.2mg/dL (0.0-1.2) Aspartate Amino Transf (AST/SGOT) 16U/L (0-50) Alanine Aminotransferase (ALT/SGPT) 13U/L (0-44) Alkaline Phosphatase 131U/L (25-160) Troponin T 0.010ug/L (0.0-0.011) Pro-B-Type Natriuretic Peptide 541.7pg/mL (0-376) Total Protein 6.8g/dL (6.4-8.4) Albumin 2.5g/dL (3.4-5.0) Procalcitonin 0.19ng/mL (0.00-0.08) Hold Bennett Top Tube Received (Received) Assessment/Plan Assessment/Plan A: * Vancomycin dosing by pharmacy for 66 y/o immunocompromised man with healthcare associated pneumonia * The patient received a 1000 mg IV vancomycin dose in the ED * He is also being started on levofloxacin and cefepime * His estimated CrCl is 92 mL/min (Cockcroft & Gault) * Estimated vancomycin half-life is 9 hours and estimated Vd is 44 liters P: * Starting vancomycin 1250 mg IV every 12 hours (first dose about 6 hours after ED dose) * Target a vancomycin trough range of 15 - 20 mcg/mL * Draw a trough level prior to the fourth dose Thank you. Pharmacy will continue to follow this patient. Mercedes Lindsey Apr 14, 2017 01:32
--- NOTE | 2017-04-14 03:26 | NUR ---
Admit note [place] [facility] [place]. Pt c/o pain to right back/ribs/chest area. Pt stating came to ER due to increased pain, stating was seen in ED last night and was diagnosed with pneumonia but could not stay in hospital. Placed nicotine patch on pt. Pt stating having vision changes. MD notified. MD came to assess pt. Pt shaky, stating having increased pain but vision changes seemed to improve. Pt stating need home medications. Medicated pt with meds as ordered and 25mcg IV fentanyl for pain 07/16. Pt resting in bed after medication admin. Continuous pulse ox in place. Pt on RA sating 88-91%. Call light within reach, frequent rounding, bed alarm in place, at bedside.
[2017-04-14 05:02] LABS: APPEARANCE,URINE CLEAR (CLEAR,HAZY); COLOR,URINE YELLOW (YELLOW); OCCULT BLOOD,URINE NEGATIVE (NEGATIVE); PH,URINE 6.5 (5.0-8.0); UROBILINOGEN,URINE NORMAL (NORMAL)
[2017-04-14 06:40] LABS: BASOPHILS % (AUTO) 0.1 % (0-3); EOSINOPHILS % (AUTO) 0.4 % (0-5); MONOCYTES % (AUTO) 15.1 % (4-12); Mean Corpuscular Hemoglobin 29.3 pg (27.0-35.0); Mean Corpuscular Volume 92.9 fL (81-100); NEUTROPHILS % (AUTO) 72.9 % (40-74); Platelet Count 426 bil/L (150-400)
[2017-04-14] MEDS ORDERED: Heparin 5,000 Unit/mL Inj SUBQ SCH (08:30)
[2017-04-14] MEDS ORDERED: Vancomycin Dose per Pharmacist XX SCH (08:30)
[2017-04-14] MEDS: 0.9% Sodium Chloride 1,000 ML IV SCH ×2 (12:47→23:54)
--- NOTE | 2017-04-14 13:02 | NUR ---
Palliative care note D/A: Palliative care referral received today from Dr. Pineda for assistance with goals of care conversation. Pt has been seen by Palliative Care in the recent past. In discussion with Dr. Land in 10/21- pt was not yet ready to fill out POLST but did indicate at that time that she did not want ventilator as well as did not want lengthy hospitalization. His overall wish was to at home, and also declined use of a feeding tube. Chart is reviewed for advanced directives. DPOA present in chart. First decision maker is pt spouse Jakob (please note not [place]) and her number is listed as [phone]. Secondary decision maker is Анна Snowden, of the same home address and her number is listed as [phone]. Lastly,if none of the above are available, then [place] Carroll is the third decision maker at [phone]. DPOA signed by pt and dated 10/20/2016. 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 During admit of 10/21, it was noted that pt pre-illness weight was 240 and had dropped to 165 on admit. 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 He has indicated that he has a history of TBI and PTSD. In 2010, he was followed at [facility] and had a mental health case manager with whom he felt connected. Pt lives with his spouse who is also disabled due to DM and her weight and is mostly wheelchair bound. Pt has considered his grand daughter and her boyfriend to be his caregivers. Per past notes, also present and living in the house were pt daughter, grand daughter and her boyfriend. Couple has a son in his early 40's, who may or may not live with them, who has a history of TBI, as well as CD history, that has been attempting to intimidate pt and spouse into handing over their meds. Early in 2016- APS referral was made and pt did speak to APS. At that time, it was noted that pt and spouse used a lock box for their meds. In later notes, there is also reference to pt dtr having significant IV heroin issues and pt/spouse having a restraining order on her. Unclear if this is the same dtr that lives with couple in their home. Have left message for Tigre in oncology in regards to any up date on pt condition and psychosocial needs. Please note that pt was admitted 04/12/17 and left AMA. He was then asked by his oncologist to return to the hospital and was re-admitted on 04/13/17. P: Palliative care to follow. Audra TORRES CCM Addendum: 04/14/17 at 1340 by JUAN CARLOS LINDSEY Palliative care note amendment D/A: Please also note that pt was scheduled to be seen in outpt palliative care on Monday04/17/17 at 1100. P: Palliative care to follow. Audra TORRES [facility]
--- NOTE | 2017-04-14 14:28 | PCM.CONPAL ---
Date of Service Apr 14, 2017 Date of Hospital Admission: Apr 13, 2017 at 21:38 Date of Palliative Consult: Apr 14, 2017 Requesting Provider: Srikanth Pineda Reason Palliative Care Consult: Pain, Goals of Care Discussion Hospital Unit @time of consult: Medical/Pediatric Care Palliative Care Recommendation 66-year-old gentleman with widely metastatic small cell lung cancer, status post 6 cycles of palliative chemotherapy plus whole brain radiation. Next follow-up visit with oncology was to have been on 04/26/17. Per patient's , he has been steadily deteriorating with anorexia, progressive weight loss, progressive inanition, etc. Patient presented with worsening dyspnea, fevers, purulent sputum production and was admitted with dense right sided pulmonary infiltrate. Palliative medicine consulted to assist with symptom management and review of goals of care with the patient and his family. I have spoken with his hospitalist- CT scan of chest pending to assess for possible bronchial obstruction/postobstructive pneumonia- may need to consider pulmonary medicine consultation/bronchoscopy depending on findings. Summary of palliative recommendations: -Symptom management (Pain/other)- continue his usual MS ER 45 mg BID. Based on MEDD calculation, change medication for breakthrough pain to hydromorphone, 1-2 mg IV Q 3 hr prn. Monitor response and adjust as needed. Also, continue oral oxycodone for breakthrough pain 30 mg Q 3 hr prn. Discontinue his Soma- his notes that even a single tablet of it now obtunds him. Make his clonazepam 1 mg QID prn rather than scheduled. Continue his gabapentin and Seroquel as before -DPOA/Advanced Directives/POLST- per patient's emphatic wishes, continues to be full code. His understands this is unrealistic but acceeds to his wishes. -Family/emotional support- spoke at length with his as well as with his granddaughter who is closely involved in his care. Palliative medicine will continue to follow and provide support Additional Medical Diagnoses with primary management by Hospitalist team include : Healthcare associated pneumonia, present on admission, ongoing: Chronic normocytic anemia, present on admission, ongoing: Elevated blood glucose, present on admission, ongoing: History of congestive heart failure, present on admission: Extensive stage small cell lung cancer metastases to lymph nodes, liver, bone, and brain, present on admission, ongoing: Chronic pain with opiate dependence, present on admission, ongoing: Anxiety/depression, present on admission, ongoing: Reported history of atrial fibrillation, present on admission, stable: Problems: End of Life Preferences Full code Disposition To be determined Resuscitation Status Resuscitation Status: CPR: Attempt Resuscitation POLST Updates/Changes Previous POLST?: No . Pain: Mild Symptom management: Nausea, Depression, Anxiety, Drowsiness/sleepiness, Dyspnea , Pain Pt History History of Present Illness Per admission H&P: 66-year-old male with past medical history significant for extensive stage small cell lung cancer, coronary artery disease status post CABG, atrial fibrillation, congestive heart failure, COPD, and chronic pain with opioid dependence who presents for shortness of breath. The patient was most recently in the hospital yesterday evening at which time he left against medical advice. The patient returns today at the advice of his oncologist. The patient states that over the last 2 weeks he has developed progressively worsening shortness of breath and cough productive for yellow sputum. There are some streaks of blood in the cough now.. This is associated with subjective fevers, nausea, and several episodes of nonbloody vomiting. The patient states that he feels fatigued with decreased appetite and fluid intake. He also admits to achy and at times sharp chest pain located in the right side of his chest that is worse when he presses down on the area. Other areas of pain including his right upper quadrant of the abdomen (patient has known liver metastases). He denies any diarrhea, diaphoresis, numbness or tingling extremities. The patient is followed by [facility] Oncolog. He has extensive small cell lung cancer with metastases to liver, lymph node, liver, bone, and brain. He is status post 6 cycles of palliative chemotherapy with carboplatin and etoposide and whole brain radiotherapy. His last CT chest on 03/15/2017 showed an unchanged appearance of right hilar mass as well as scarring/post obstructive right midlung, unchanged appearance of osseous metastatic disease, posterior right upper lobe nodular opacities. Patient is well-known to the palliative service from previous admissions. Prior to seeing him, I reviewed his records in the EMR over the course of his his multiple hospitalizations and oncology clinic visits. Reviewed his imaging studies as well and spoke with his hospitalist. When I arrived, patient was sleeping soundly and so I spoke with his . Reviewed his status over the last several months- she noted that he has been deteriorating since October (around the time that his EMAIL MARKETING COORDINATOR metastases were discovered and he underwent radiation therapy) he has had progressive anorexia and weight loss- weight is now down to 138 pounds from his baseline of 230 a year ago. He has been increasingly emotionally labile with anger alternating with withdrawal. He is increasingly forgetful. His noted he had low- grade fevers at home prior to admission as well as nausea and emesis, but denied diarrhea. She also noted he had been coughing more and producing yellowish-green sputum at times with blood streaking. His pain control has been inconsistent- note that Dr. Bueno had increased his MS ER recently. His notes that the Soma he takes now seems to knock him out and she wonders if that may be should be discontinued for safety. 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 He was eventually convinced to return to the emergency room and then be admitted. Evaluation has revealed dense right-sided infiltrate, significantly worse than on last CT scan of 03/15/17. Despite his steady decline, his says he continues to insist that he would want a trial of intubation/CPR/defibrillation. She notes that her mother became very ill and required intubation and managed to recover to survive several more months (she had a diagnosis of leukemia) and with that example the patient has remained committed to similar aggressive care. Power of tax associate attorney paperwork was completed and is on file from the last admission. No POLST as his wishes continued to be full resuscitation/full code Past Medical History Significant PMH Noted: Chronic pain syndrome with opioid dependence Extensive stage small cell lung cancer metastases to lymph nodes, liver, bone, and brain status post 6 cycles of palliative chemotherapy and whole brain radiotherapy Coronary artery disease status post CABG Atrial fibrillation Congestive heart failure COPD Pulmonary embolism 2010. DVT Hypertension PTSD. Social History Occupation: Medically disabled Previously worked as a fisherman and longer ; accompanied by his ; she is medically disabled on chronic oxygen Family Members Issues: His understands that he is deteriorating. She says other physicians have given him "7 or 8 weeks". She asked me what I thought his prognosis might be. We talked about his wishes for aggressive interventions- she accepts and understands that these are unlikely to do him any benefit, but she will go along with his wishes. Living Situation: Lives at home with his HESHAM at Time of Admission Previous HESHAM?: No Allergy Allergies Reviewed: Yes Medications Current Medications: Current Medications Hydromorphone HCl 1 mg Q15MIN PRN IVPUSH Last administered on 04/13/17 22:24; Admin Dose 1 MG; Start 04/13/17 at 20:20; Stop 04/13/17 at 22:40; Status DC Heparin Sodium (Porcine) 5,000 unit Q8 SUBQ; Start 04/14/17 at 00:30 Albuterol/ Ipratropium 3 ml 3 ml Q2H PRN NEB; Start 04/13/17 at 22:15 Levofloxacin/ Dextrose 750 mg/ Premix 150 ml @ 100 mls/hr Q24H IV; Start at 20:30 Cefepime HCl 2 gm/ Premix 50 ml @ 12.5 mls/hr Q12H IV; Start 04/14/17 at 15:00 Sodium Chloride 1,000 ml @ 80 mls/hr [id number] IV Last administered on 04/14/17 12:47; Admin Dose 80 MLS/HR; Start 04/13/17 at 22:13 Al Hydrox/Mg Hydrox/Simethicone 30 ml Q6H PRN PO; Start 04/13/17 at 22:15 Senna 17.2 mg BID PRN PO; Start 04/13/17 at 22:15 Polyethylene Glycol 17 gm DAILY PRN PO; Start 04/13/17 at 22:15 Fentanyl Citrate 25-50 mcg Q3H PRN IVPUSH Last administered on 04/14/17 00:00; Admin Dose 25 MCG; Start 04/13/17 at 22:15 Nicotine 1 patch DAILY TOPICAL Last administered on 04/14/17 09:49; Admin Dose 1 PATCH; Start 04/13/17 at 23:00 Pharmacy Consult 1 ea DAILY XX; Start 04/14/17 at 08:30 Heparin Sodium (Porcine) 5,000 unit Q12 SUBQ; Start 04/14/17 at 08:30; Stop at 08:30; Status DC Carisoprodol 350 mg TID PRN PO Last administered on 04/14/17 09:48; Admin Dose 350 MG; Start 04/14/17 at 08:30; Stop 04/14/17 at 14:06; Status DC Clonazepam 1 mg QID PO Last administered on 04/14/17 06:48; Admin Dose 1 MG; Start 04/13/17 at 23:43; Stop 04/14/17 at 14:06; Status DC Morphine Sulfate 15 mg BID PO; Start 04/13/17 at 23:20; Stop 04/13/17 at 23:37; Status DC Prochlorperazine 10 mg 0830,1430,1830,2330 PO Last administered on 04/14/17 09: 46; Admin Dose 10 MG; Start 04/13/17 at 23:43 Morphine Sulfate 45 mg BID PO Last administered on 04/14/17 09:47; Admin Dose 45 MG; Start 04/13/17 at 23:37 Ondansetron HCl 4 mg QID PO; Start 04/14/17 at 06:30 Oxycodone HCl 30 mg Q3H PRN PO Last administered on 04/14/17 12:53; Admin Dose 30 MG; Start 04/13/17 at 23:40 Quetiapine Fumarate 50 mg HS PO Last administered on 04/14/17 00:10; Admin Dose 50 MG; Start 04/13/17 at 23:41 Quetiapine Fumarate 200 mg HS PO Last administered on 04/14/17 00:10; Admin Dose 200 MG; Start 04/13/17 at 23:41 Gabapentin 300 mg HS PO Last administered on 04/14/17 00:09; Admin Dose 300 MG; Start 04/13/17 at 23:35 Ondansetron HCl 4 mg 4 mg Q8H PRN PO; Start 04/13/17 at 23:35 Vancomycin HCl/ Dextrose/Water 250 ml @ 166.667 mls/hr Q12H IV Last administered on 04/14/17 06:23; Admin Dose 166.667 MLS/HR; Start 04/14/17 at 06: 30 Clonazepam 1 mg QID PRN PO; Start 04/14/17 at 14:05 Scheduled Carisoprodol (Soma) 350 Mg Tablet 350 MG PO TID Clonazepam (Klonopin) 1 Mg Tablet 1 MG PO QID Gabapentin (Gabapentin) 300 Mg Capsule 300 PO HS Morphine Sulfate (Morphine Sulfate) 30 Mg Tablet 30 MG PO BID TAKE WITH 15 MG TABLET (=45 MG TOTAL) Morphine Sulfate (Morphine Sulfate) 15 Mg Tablet 15 MG PO BID TAKE WITH 30 MG TABLET (=45 MG TOTAL) Ondansetron (Zofran) 4 Mg Tablet 4 MG PO QID STAGGER W/ COMPAZINE Prochlorperazine Maleate (Prochlorperazine) 10 Mg Tablet 10 MG PO QID STAGGER WITH ZOFRAN Quetiapine Fumarate (Seroquel) 200 Mg Tablet 200 MG PO HS TAKE WITH 50 MG TABLET (=250 MG TOTAL) Quetiapine Fumarate (Quetiapine Fumarate) 50 Mg Tablet 50 MG PO HS TAKE WITH 200 MG TABLET (=250 MG TOTAL) Scheduled PRN Oxycodone (Roxicodone) 30 Mg Tablet 30 MG PO Q3HR PRN PRN For Pain TAKES SCHEDULED Current Treatments Oxygen: Yes IV Fluids: Yes Antibiotics: Yes Telemetry: Yes Objective Findings Exam Vital Sign - Last Date Time Temp Pulse Resp B/P Pulse Ox O2 Delivery O2 Flow Rate FiO2 04/14/17 13:37 37.1 60 18 105/69 94 Room Air Intake and Output 04/13/17 04/13/17 04/14/17 Cumulative From/Thru 15:00 23:00 07:00 04/13/17 20:02 - 04/14/17 06:00 Intake Total 887 ml 887 ml Balance 887 ml 887 ml IV Total 887 ml 887 ml Objective Per admission note: General: Frail thin man,, appropriately interactive HEENT: Normocephalic, atraumatic. External ears without defect. Pupils equal, round, and reactive to light and accommodation. Anicteric sclerae, moist conjunctivae, and no lid lag. Dry oral mucosa. Neck: Supple with full range of motion. Cardiovascular: Regular rate and rhythm with no murmurs, rubs, or gallops appreciated Pulmonary: Clear to auscultation bilaterally with crackles and rhonchi throughout.. Normal respiratory effort with no use of accessory muscles. Abdomen: Bowel tones present. Soft, tender to palpation in right upper quadrant without rebound or guarding, nondistended Extremities: No clubbing, cyanosis, edema appreciated. Skin: Normal temperature, turgor, and texture; no rash, ulcers, or subcutaneous nodules appreciated. Neurological: Cranial nerves grossly intact. Normal muscle strength, tone, and bulk. Reflexes, coordination, and sensory function within normal limits. No known gait impairment. Psychiatric: Normal mood and affect. Alert and oriented to person, place, and time Lab/Diagnostics Lab and Imaging results reviewed in detail in EMR. Time spent Total time 95 minutes; >50% face to face with patient and family, providing counselling regarding plans and recommendations, and in care coordination with his medical teams. All the above total time, 15 minutes counseling for advanced care planning with the patient's copies to: Dayami Malagon MD; Yevgeniy Bueno MD, David F MD Apr 14, 2017 14:28
--- NOTE | 2017-04-14 14:52 | NUR ---
NUTRITION ASSESSMENT: ASSESS: Pt is a 66yo M admitted for pneumonia. Pt has history of lung ca and is currently being following at the cancer center. Pt continues to have gradual wt loss. Current wt is 138lbs (62.9kg) and reported wt prior to treatment starting was ~ 210-215 lbs (95.45-97.72 kg) = 35% wt loss x 1 year= significant. Pt was sleeping when visited but was in room. She reported that pt sleeps most of the day and has not been eating much. He use to drink carnation instant breakfast and Ensure with no problem but recently he is only drinking little bits at a time. Pt tried Ensure CL but reported that the pt did not like it. She reported that he has been craving cold fruit. He is currently on a general diet and ate 50%x1 meal. PMHX: lung CA, Afib, CAD, HTN LABS: Reviewed. Engineering Assistant .63, Glu 118, alb 2.5 MEDS: Reviewed. GI: 0 BM SKIN: Kelechi 17, pale, thin man sleeping in bed. Visible muscle/fat loss in face and arms CURRENT WTS: 62.9kg, BMI 19kg/m2, UBW 96kg, 23% wt lossx1 year DIET: General, PO 50%x1meal EST. NEEDS: CA, wt loss Calories: 6178-0718 kcal/d (30-35 kcal/kg/d) Protein: 95-115 g/d (1.5-1.8 g/kg/d) NUTRITION DIAGNOSIS: 1.) Severe pro/kcal malnutrition related to cancer and cancer treatment as evidenced by 35% wt loss x1 year, loss of LBM and decreased PO intake for greater than 1 month. NUTRITION INTERVENTION: 1.) Will add cottage cheese w/pinapple on B&L trays. 2.) Will send Chocolate or strawberry Ensure on L and D trays and Geletein plus on D tray 3.) Encouraged family to bring in food that pt likes and discussed ways to optimize kcal/pro intake when pt is tired and not eating much foods. MONITOR / EVAL: PO intake, wt, GI, labs, POC, nutrition status. Will continue to monitor per high nutrition risk guidelines
--- NOTE | 2017-04-14 15:06 | NUR ---
Social Work: Initial Assessment Data: Pt is a 66 y/o male admitted for pneumonia. Pt's PCP is Dr Malagon, pt's insurance is Medicare with [facility] sup. EMR reviewed, readmit score not listed. COMPLAINT COORDINATOR met with pt at bedside, role explained. Pt states he lives with his in [place] in a single story home with a ramp to enter where pt typically uses no DME. Pt drives, has no hx of HH or SNF, no LTC or VA benefits. stated in rounds that Palliative may be consulted. COMPLAINT COORDINATOR will continue to follow for possible d/c planning needs. Assessment: Pt who is independent at baseline. Plan: Pt plans to d/c home via POV with grand daughter when medically stable. stated in rounds that Palliative may be consulted. COMPLAINT COORDINATOR will continue to follow for possible d/c planning needs. SHAYY Toney Addendum: 04/14/17 at 1508 by NAZ DAVIS Amended: Links added.
[2017-04-14] MEDS: HYDROmorphone 1 mg/mL Inj IVPUSH PRN ×3 (15:13→22:19)
[2017-04-14] MEDS: Cefepime Inj 2 GM in IV Premix 1 EACH IV SCH (15:19)
--- NOTE | 2017-04-14 15:38 | NUR ---
spiritual care: pt request conversaitonal visit with kirby pt's who shared stress and overwhelm of pt's medical condition and prognosis.
--- NOTE | 2017-04-14 15:56 | PCM.PNMED ---
Subjective Date of Service Apr 14, 2017 Subjective ROS limited 2ndry to patient quite sedated and somnolent apparently after receiving Soma earlier today. Exam Vital Signs Vital Sign - Last Date Time Temp Pulse Resp B/P Pulse Ox O2 Delivery O2 Flow Rate FiO2 04/14/17 15:19 Supplement Oxygen 04/14/17 13:37 37.1 60 18 105/69 94 Intake and Output 04/13/17 04/13/17 04/14/17 Cumulative From/Thru 15:00 23:00 07:00 04/13/17 20:02 - 04/14/17 06:00 Intake Total 887 ml 887 ml Balance 887 ml 887 ml IV Total 887 ml 887 ml Exam sleepy and somnolent. briefly opens his eyes to his name but then closes eyes and does not answer any questions and does not follow any command General: No Acute Distress Head: Normal Eyes: Scleral Anicteric Nose: Mucous Membr Moist/[place] Mouth: Mucous Membr Moist/[place] Neck: Supple Chest & Lungs: Chest Wall Normal, Clear to auscultation & percussion Cardiovascular: Regular Rate/Rhythm Abdomen: Non-tender, Non-distended, Normoactive bowel tones, Soft Extremities: No cyanosis/clubbing/edma bilat Neurological: Other (neuro exam limited as noted above) IVs and Medications Medications Reviewed: Medications were reviewed in detail Lab and Diagnostics Result Diagram: 04/14/1761604/14/17616 X-Rays, CTs and MRIs Date of Service: 04/13/172015 PROCEDURE: X-RAY CHEST ONE VIEW, PORTABLE ([id number]) IMPRESSION: Increased right upper lung dense opacification. Prior CABG. The prior CT scanning had raise concern for a mass lesion at the right hilum. The appearance may reflect post obstructive pneumonia or postobstructive retention of pulmonary secretions. Dictated by: Nabil Phan M.D. on 04/13/2017 at 20:54 Approved by: Nabil Phan M.D. on 04/13/2017 at 20:55 Assessment & Plan 66-year-old male with past medical history significant for COPD, CHF atrial fibrillation, coronary disease, and extensive small cell lung cancer who presents for shortness of breath, productive cough, subjective fevers, and right -sided chest pain. # Suspected acute healthcare associated pneumonia, present on admission, ongoing - Continue with broad-spectrum antibiotics including Vancomycin (dosed by pharmacy), cefepime, Levaquin - Blood cultures, sputum cultures, Legionella antigen, strep pneumo antigen, lactic acid, pro calcitonin pending. - Check CT chest and pending results will consider pulmonology consult # Acute encephalopathy - Likely toxic/metabolic from medication side effect including Soma, Opiates, and Benzos - Monitor closely - May have to minimize these medications pending goals of care # Extensive stage small cell lung cancer metastases to lymph nodes, liver, bone , and brain, present on admission, ongoing: - Continue with supportive care - IV Dilaudid prn - Palliative care consulted. Will followup with recs # Chronic pain with opiate dependence, present on admission, ongoing: - Continue home pain medications. # Anxiety/depression, present on admission, ongoing: - Continue clonazepam. Patient is at risk for respiratory depression due to large opiate doses and clonazepam. Will monitor respiratory status. Naltrexone ordered if needed - Continue to monitor. # Chronic normocytic anemia, present on admission. stable and baseline # Elevated blood glucose, present on admission - Likely reactive - Followup pending HgA1C # Reported history of congestive heart failure, present on admission. Unclear if systolic or diastolic. - Currently patient is dehydrated due to decreased appetite and fluid intake. - Patient's family reports echocardiogram several months ago in [place] which showed heart failure. # Reported history of atrial fibrillation, present on admission, stable - Followup # Goals of care - discussed with patient's - Palliative care consulted to further clarify Dispo: 2-3 days Resuscitation Status: CPR: Attempt Resuscitation Srikanth Pineda Apr 14, 2017 15:56
--- NOTE | 2017-04-14 17:00 | DRSVH ---
PROCEDURE: CT CHEST WITH CONTRAST ([id number]) INDICATIONS: SOB TECHNIQUE: After the administration of intravenous contrast, 5 mm thick sections acquired from the pulmonary api misha to the posterior costophrenic angles. 7 mm thick coronal and sagittal MIP reformats were acquire d. For radiation dose reduction, the following was used: automated exposure control, adjustment of mA and/or kV according to patient size. COMPARISON: [facility], CT, CT CHEST ABD PELVIS W CON, 03/15/2017, 10:07. [facility], CT, CT CHEST W CON, 02/03/2017, 12:44. [facility], CT, CHEST WITH CONTRAST, 2/0 07/2012, 9:45. FINDINGS: Image quality: Excellent. Lungs and pleura: There is new severe air space opacification of the entire right upper lobe, consist ent with postobstructive phenomenon. No pneumothorax. There is a new small right pleural effusion. Th ere is new, complete occlusion of the right upper lobe bronchus. There is increased, oitz-[id number] narrowing of the bronchus intermedius. Mediastinum: Heart size is normal. No pericardial effusion. The previously seen right hilar mass wh ich encases and occludes the right upper lobe bronchus, as well as partially encases the bronchus int ermedius, is less well defined secondary to surrounding airspace opacification. This mass demonstrate s increased encasement of the right middle lobe bronchus. Increased, 20 mm short axis subcarinal [place] opathy is present. Increased, 17 mm short axis precarinal adenopathy is present. Increased, 16 mm kayla rt axis adenopathy within the anterosuperior mediastinum is present. There is increased, moderate air space opacity within the medial segment right middle lobe. Thoracic aorta and central pulmonary arter ies are normal in size. Esophagus is normal in caliber. No hiatal hernia. Bones and chest wall: Median sternotomy. Diffuse ill-defined sclerosis throughout the spine and ribs is present, as before. No vertebral body compression fractures. No axillary or supraclavicular adeno vinec by size criteria. Thyroid gland is within normal limits. Abdomen: Visualized portions of the upper abdomen demonstrate multiple hepatic cysts. IMPRESSION: 1. New occlusion of the right upper lobe bronchus, with new severe post obstructive phenomenon throug hout the right upper lobe. There is increased narrowing of the bronchus intermedius and right middle lobe segmental bronchi, with associated bronchovascular spread of of the right hilar mass. 2. Increased mediastinal adenopathy. 3. New small right pleural effusion. 4. No change in diffuse osseous sclerosis, compatible with metastatic disease. Dictated by: Lucia Ng M.D. on 04/14/2017 at 16:50 Approved by: Lucia Ng M.D. on 04/14/2017 at 16:58
--- NOTE | 2017-04-14 20:05 | PCM.ADCARE ---
Advance Care Planning Note Purpose of Encounter: Goals of care Parties in Attendance: Patient, his , and his rehab care assistant Decisional Capacity: Decisional Subjective: Says feeling much better now and hoping to go home possibly tonight Objective: General: No Acute Distress, Awake, Alert, Ox3 Head: Normal Eyes: Scleral Anicteric Nose: Mucous Membr Moist/Evaro Mouth: Mucous Membr Moist/Evaro Neck: Supple Chest & Lungs: Chest Wall Normal, Clear to auscultation bilat Cardiovascular: Regular Rate/Rhythm Abdomen: Non-tender, Non-distended, Normoactive bowel tones, Soft Extremities: No cyanosis/clubbing/edema bilat Neurological: Non-focal Goals of Care Determinations: Patient notes that his goal is mostly to be comfortable and wishes to go home as soon as possible and when told about the possible complications of CPR and intubation notes that he does not wish to be full code and instead wants to be DNR/DNI. He hopes to go home with hospice. Initially was contemplating leaving AMA but agrees to stay overnight to have hospice informational visit tomorrow before going home. Re-verified with patient, his , and his rehab care assistant all of whom are in agreement that patient is to be DNR/DNI (despite indicating earlier to palliative care that he wants to be Full Code) and possibly transition to full comfort care and hospice prior to going home tomorrow. Plan: Continue with current Abx. May be more liberal with pain medications given now DNR/DNI and main goal is comfort. Hospice informational visit tomorrow and then likely d/c home tomorrow. CODE STATUS: DNR/DNI Time Spent Adv.Care Plannin min Srikanth Pineda Apr 14, 2017 20:05
[2017-04-14] MEDS ORDERED: levoFLOXacin Inj 750 MG in IV Premix 1 EACH IV SCH (20:30)
--- NOTE | 2017-04-14 22:37 | PROG NOTE ---
[address] [address] PROGRESS NOTE PATIENT: BRENT JOSE : 1950 MR#: [id number] ADMIT: 04/13/2017 JOB ID: [id number] INPATIENT MEDICAL ONCOLOGY PROGRESS REPORT: DATE: 04/14/2017 DIAGNOSIS: Recurrent extensive stage small cell lung cancer, associated with severe right upper lobe postobstructive pneumonia. HISTORY OF PRESENT ILLNESS: The patient is an unfortunate 66-year-old, chronic smoker male, with established diagnosis of extensive stage small cell lung cancer, associated with brain metastases, who has received six cycles of carboplatin/etoposide chemotherapy ending in December 2016, followed later by whole-brain radiotherapy. Over the past 2-3 weeks, he has been experiencing worsening pain around right upper chest both anteriorly and posteriorly, worsening cough with greenish sputum production, fever, chills and progressive weakness. He is very short of breath. He came to hospital two days ago and left yesterday AMA. He called our office and we encouraged him to return back to ER which he did today. CT chest with IV contrast this afternoon shows progressive malignancy. There is new occlusion of right upper lobe bronchus with new severe post obstructive phenomenon throughout right upper lobe. There is increased narrowing of the bronchus intermedius and right middle lobe segmental bronchi, with associated bronchovascular spread of right hilar mass. Mediastinal adenopathy has increased and there is a new small right pleural effusion. There are diffuse osseous metastases. OBJECTIVE: Currently he appears lethargic and difficult to arouse. When I woke him up, he was oriented x3 and was able to communicate. He looks uncomfortable and in pain. Vital signs are normal including blood pressure 105/69, heart rate 60, temperature 37.1. O2 saturation 94% on supplemental oxygen. LABORATORY DATA: Reviewed. There is borderline leukocytosis. Albumin is severely low. ProBNP is borderline elevated. IMPRESSION: We had a long conversation today with the patient and his . He is adamant that he wants to go home despite many times that I advised him to stay and receive IV antibiotics. He wants to go home tomorrow. He is agreeable with hospice which, in my opinion, would be the best course of action for him. He understands that his prognosis is very limited in his current condition and he was told that oral antibiotics would be probably ineffective. Nonetheless he would like to go home and try oral antibiotics and is agreeable with hospice. PLAN: 1. Discharge patient home tomorrow, and try to arrange hospice DEVANTE. 2. Provide Augmentin 875 mg p.o. b.i.d. upon discharge. 3. Continue current pain regimen at home which includes morphine sulfate 45 mg ER b.i.d. and oxycodone 30 mg every three hours p.r.n. Give the patient a week's supply of these narcotic prescriptions until hospice is arranged. Case was discussed with today.
[2017-04-15] MEDS: HYDROmorphone 1 mg/mL Inj IVPUSH PRN ×4 (02:38→12:19)
[2017-04-15] MEDS: Cefepime Inj 2 GM in IV Premix 1 EACH IV SCH (02:39)
[2017-04-15 05:20] VITALS: BP 113/69; PULSE 93; RESP 18; O2SAT 94
--- NOTE | 2017-04-15 05:38 | NUR ---
Noc/pain Pt reports of pain 8/10 throughout his whole body most of the time. Dilaudid and oxycodone administered PRN for pain control. Denies chest pain, sob, n/v or abd discomfort. Has been administering zofran tab as scheduled for prophylaxis in nausea. Pt has been on RA and has been saturating 91%. Pt's VSS and has been afebrile. IV ABx administered as scheduled and pt has slept most of the night.
[2017-04-15] MEDS ORDERED: Vancomycin Serum Trough XX ONE (06:00)
[2017-04-15 06:12] LABS: BASOPHILS % (AUTO) 0.1 % (0-3); EOSINOPHILS % (AUTO) 0.6 % (0-5); MONOCYTES % (AUTO) 18.2 % (4-12); Mean Corpuscular Hemoglobin 28.7 pg (27.0-35.0); Mean Corpuscular Volume 92.9 fL (81-100); NEUTROPHILS % (AUTO) 66.7 % (40-74); Platelet Count 415 bil/L (150-400)
[2017-04-15 06:15] VITALS: PULSE 111
[2017-04-15] MEDS: Heparin 5,000 Unit/mL Inj SUBQ SCH ×2 (08:30→09:06)
[2017-04-15] MEDS: Morphine ER 15 mg (MS Contin) Tablet PO SCH (09:05)
[2017-04-15] MEDS ORDERED: OXYC30TA48 PO (11:24)
[2017-04-15] MEDS ORDERED: LEVO750T39 PO (11:24)
[2017-04-15] MEDS ORDERED: MORP30TA PO (11:24)
[2017-04-15] MEDS ORDERED: MORP15TA PO (11:24)
[2017-04-15] MEDS ORDERED: PANT20T PO (11:24)
--- NOTE | 2017-04-15 11:29 | PCM.DIMED ---
Discharge Instructions Date of Service Apr 15, 2017 Dates of Hospitalization Apr 13, 2017 at 21:38 Discharge Diagnosis Discharge Diagnosis # Suspected acute healthcare associated pneumonia vs more likely post- obstructive pneumonia, present on admission. # Acute encephalopathy, likely toxic/metabolic from medication side effect including Soma, Opiates, and Benzos. Resolved # Extensive stage small cell lung cancer metastases to lymph nodes, liver, bone , and brain, present on admission, ongoing # Chronic pain due to underlying cancer with opiate dependence, present on admission, ongoing # Anxiety/depression, present on admission. Stable. # Chronic normocytic anemia, present on admission. stable and baseline # Reported history of congestive heart failure, present on admission. Unclear if systolic or diastolic. # Reported history of atrial fibrillation, present on admission, stable Diet Discharge Diet: No restrictions Activity Discharge Activity: No restrictions Call your provider Call your provider for: Fever or Chills, Shortness of breath, Chest pain, Vomitting, Excessive diarrhea Patient Instructions Patient Instructions Seek immediate medical attention or followup with hospice if any new or worsening signs or symptoms occur. Follow-up plan 1. Followup with primary care provider (Dr. Malagon) or with your oncologist ( Dr. Bueno) in 5-7 days or may continue to follow with hospice if decide to continue with comfort care only. Follow-up Provider: Dayami Malagon MD Provider: Yevgeniy Bueno MD, Masoud Apr 15, 2017 11:29
--- NOTE | 2017-04-15 12:32 | NUR ---
Discharge Went over discharge information, medications and followup appointments with pt and family who all verbally acknowledged understanding. Removed IV. Pt left in wheelchair with HELPER DRIVER and family. No s/s of distress at time of discharge
--- NOTE | 2017-04-15 14:35 | NUR ---
Social Work Note: Discharge Data& Assessment: Per pt is medically ready to discharge home via POV. Braden Snowden is a 66 year old male admitted on 04/13/2017 for pneumonia. Per pt is medically stable for discharge home. RAHEEL received order to help organize Hospice informational visit. Per Adry with hospice, there is not availability for a hospice informational visit today but there will be a availability for tomorrow 04/16/2017. SW notified MD who is agreeable to pt discharging home with Hospice info visit taking place in the home tomorrow. SW met with pt and pt family at bedside to confirm discharge plan and assess for any unmet needs. Pt family agreeable to informational visit tomorrow and states they were already told Hospice would be contacting them after discharge to schedule an exact time for the info visit. Pt family transporting pt home privately. Pt , daughter and granddaughter at bedside. All updated and agreeable to plan. Pt and pt family denies any other needs. No other discharge needs identified. Plan: Per pt is medically stable for discharge home via POV with a Hospice informational visit taking place in the home tomorrow 04/16/2017 (time to be determined and arranged by hospice post discharge). t and pt family denies any other needs. No other discharge needs identified. All updated and agreeable to plan. SHAYY Ovalle
[2017-04-15] MEDS ORDERED: SODIUM CHLORIDE 0.9% IV SCH (15:00)
[2017-04-15] MEDS ORDERED: CEFEPIME IV SCH (15:00)
--- NOTE | 2017-04-15 18:59 | PCM.DC.MED ---
Discharge Summary Date of Service Apr 15, 2017 Dates of Hospitalization Date of Hospital Admission Apr 13, 2017 at 21:38 Date of Discharge: Apr 15, 2017 Providers: Admitting Physician: Marleny Laura DO Primary Care Physician: Dayami Malagon MD Attending Physician: Marleny Laura DO Diagnosis at Time of Discharge Diagnosis at Time of Discharge # Acute post-obstructive pneumonia, present on admission. # Acute encephalopathy, likely toxic/metabolic from medication side effect including Soma, Opiates, and Benzos. Resolved # Extensive stage small cell lung cancer metastases to lymph nodes, liver, bone , and brain, present on admission, ongoing # Chronic pain due to underlying cancer with opiate dependence, present on admission, ongoing # Anxiety/depression, present on admission. Stable. # Chronic normocytic anemia, present on admission. stable and baseline # Reported history of congestive heart failure, present on admission. Unclear if systolic or diastolic. # Reported history of atrial fibrillation, present on admission, stable Consultations 1. Palliative care 2. Oncology Procedures XRay, CTs & MRIs Date of Service: 04/13/172015 PROCEDURE: X-RAY CHEST ONE VIEW, PORTABLE ([id number]) IMPRESSION: Increased right upper lung dense opacification. Prior CABG. The prior CT scanning had raise concern for a mass lesion at the right hilum. The appearance may reflect post obstructive pneumonia or postobstructive retention of pulmonary secretions. Dictated by: Nabil Phan M.D. on 04/13/2017 at 20:54 Approved by: Nabil Phan M.D. on 04/13/2017 at 20:55 Date of Service: 04/14/17 1344 PROCEDURE: CT CHEST WITH CONTRAST ([id number]) IMPRESSION: 1. New occlusion of the right upper lobe bronchus, with new severe post obstructive phenomenon throughout the right upper lobe. There is increased narrowing of the bronchus intermedius and right middle lobe segmental bronchi, with associated bronchovascular spread of of the right hilar mass. 2. Increased mediastinal adenopathy. 3. New small right pleural effusion. 4. No change in diffuse osseous sclerosis, compatible with metastatic disease. Dictated by: Lucia Ng M.D. on 04/14/2017 at 16:50 Approved by: Lucia Ng M.D. on 04/14/2017 at 16:58 Brief History As noted in H&P by Dr. Arana: This is a 66-year-old male with past medical history significant for extensive stage small cell lung cancer, coronary artery disease status post CABG, atrial fibrillation, congestive heart failure, COPD, and chronic pain with opioid dependence who presents for shortness of breath. The patient was most recently in the hospital yesterday evening at which time he left against medical advice. The patient returns today at the advice of his oncologist. The patient states that over the last 2 weeks he has developed progressively worsening shortness of breath and cough productive for yellow sputum. There are some streaks of blood in the cough now.. This is associated with subjective fevers, nausea, and several episodes of nonbloody vomiting. The patient states that he feels fatigued with decreased appetite and fluid intake. He also admits to achy and at times sharp chest pain located in the right side of his chest that is worse when he presses down on the area. Other areas of pain including his right upper quadrant of the abdomen (patient has known liver metastases). He denies any diarrhea, diaphoresis, numbness or tingling extremities. The patient is followed by [facility] Oncolog. He has extensive small cell lung cancer with metastases to liver, lymph node, liver, bone, and brain. He is status post 6 cycles of palliative chemotherapy with carboplatin and etoposide and whole brain radiotherapy. His last CT chest on 03/15/2017 showed an unchanged appearance of right hilar mass as well as scarring/post obstructive right midlung, unchanged appearance of osseous metastatic disease, posterior right upper lobe nodular opacities. In the emergency department initial vital signs were temperature 6.9 Celsius, pulse 99, respiratory rate 12, blood pressure 113/72, satting at 96% on room air. On 04/12/2017 and lactic acid 2.4 and a procalcitonin 0.23. Laboratory values today were significant for WBC 10.7, hemoglobin 11.1, hematocrit 35.2, platelets 455. BUN 19, creatinine 0, glucose 120, troponin 0.0 and 0, pro BNP 541.7, albumin 2.5. In the emergency department on 04/12/2017 before he left against medical advice he was given a dose of Levaquin, cefepime, and vancomycin. Hospital Course # Suspected acute healthcare associated pneumonia now more consistent with post- obstructive pneumonia, present on admission, ongoing - Initially treated with Vancomycin (dosed by pharmacy), cefepime, Levaquin - Check CT chest finding with result as noted above - Initial plan was to continue with IV antibiotic and consult pulmonology. However, after speaking with his oncologist, Dr. Bueno, patient insisted on being discharged home. After detailed discussion with patient and his patient has opted to change his code statu to DNR/DNI and wishes to go home on hospice expressing clear verbal understanding that by doing so his life expectancy may be only a matter of weeks and that oral antibiotics may not be adequate to treat his current condition. Dr. Bueno had recommended patient be discharged with oral Augmentin however, given history of allergy to PCN he will instead be discharged with oral Levaquin. # Acute encephalopathy, present on admission. Resolved one day prior to discharge. - Likely toxic/metabolic from medication side effect including Soma, Opiates, and Benzos # Extensive stage small cell lung cancer metastases to lymph nodes, liver, bone , and brain, present on admission, ongoing: - Continue with supportive care - Palliative care consulted. - Per social work consult, hospice will visit patient at home tomorrow for further informational visit and possible followup as outpatient # Chronic pain with opiate dependence, present on admission, ongoing: - Continue home pain medications. # Anxiety/depression, present on admission, ongoing: - Continue clonazepam. # Chronic normocytic anemia, present on admission. stable and baseline # Elevated blood glucose, present on admission - Likely reactive # Reported history of congestive heart failure, present on admission. Unclear if systolic or diastolic. - Currently patient is dehydrated due to decreased appetite and fluid intake. - Patient's family reports echocardiogram several months ago in [place] which showed heart failure. # Reported history of atrial fibrillation, present on admission, stable # Goals of care - changed to DNR/DNI and to follow with hospice at home - please see my ACP note from 04/14/17 Exam Vital Signs (Last) Date Time Temp Pulse Resp B/P Pulse Ox O2 Delivery O2 Flow Rate FiO2 04/15/17 08:45 Supplement Oxygen 04/15/17 06:15 111 04/15/17 05:20 37.0 18 113/69 94 Exam awake, alert, Ox3. Lungs fairly CTA bilat. Test 04/13/17 20:48 04/13/17 23:15 04/15/17 05:45 Hemoglobin A1c 6.2% (4.8-5.6) Lactic Acid Level 1.5mmol/L (0.4-2.0) Magnesium Level 1.9mg/dL (1.6-2.6) Total Bilirubin 0.2mg/dL (0.0-1.2) Aspartate Amino Transf (AST/SGOT) 16U/L (0-50) Alanine Aminotransferase (ALT/SGPT) 13U/L (0-44) Alkaline Phosphatase 131U/L (25-160) Troponin T 0.010ug/L (0.0-0.011) Pro-B-Type Natriuretic Peptide 541.7pg/mL (0-376) Total Protein 6.8g/dL (6.4-8.4) Albumin 2.5g/dL (3.4-5.0) Procalcitonin 0.19ng/mL (0.00-0.08) Hold Bennett Top Tube Received (Received) Urine Color Yellow (YELLOW) Urine Appearance Clear (CLEAR,HAZY) Urine pH 6.5 (5.0-8.0) Urine Specific Crosby 1.023 (1.003-1.035) Urine Protein Negativemg/dL (NEG,TRACE) Urine Glucose (UA) Negativemg/dL (NEGATIVE) Urine Ketones Negativemg/dL (NEGATIVE) Urine Occult Blood Negative (NEGATIVE) Urine Nitrite Negative (NEGATIVE) Urine Bilirubin Negative (NEGATIVE) Urine Urobilinogen Normalmg/dL (NORMAL) Urine Leukocyte Esterase Negative (NEGATIVE) Urine RBC 0-2/hpf (0-2) Urine WBC 0-5/hpf (0-5) Urine Epithelial Cells Occasional/hpf (NONE-MOD) Urine Crystals None seen (NONE SEEN) Urine Bacteria None/hpf (NONE-FEW) Urine Hyaline Casts None/lpf (NONE) Urine Granular Casts None seen (NONE SEEN) Urine Waxy Casts None seen (NONE SEEN) Urine Red Blood Cell Casts None seen (NONE SEEN) Urine White Blood Cell Casts None seen (NONE SEEN) Urine Mucus None seen (None Seen) Urine Trichomonas None seen (NONE SEEN) Urine Yeast None (NONE SEEN) Urine Culture Reflexed Not indicated Urine Legionella pneumophilia Ag Negative (Negative) White Blood Count 9.8th/mm3 (3.8-10.1) Red Blood Count 3.52mil/mm3 (4.40-5.80) Hemoglobin 10.1g/dL (13.8-17.2) Hematocrit 32.7% (41.0-50.0) Mean Corpuscular Volume 92.9fL (81-100) Mean Corpuscular Hemoglobin 28.7pg (27.0-35.0) Mean Corpuscular Hemoglobin Concent 30.9% (32.0-37.0) Red Cell Distribution Width 14.9% (12.3-15.4) Platelet Count 415bil/L (150-400) Neutrophils (%) (Auto) 66.7% (40-74) Lymphocytes (%) (Auto) 13.6% (14-46) Monocytes (%) (Auto) 18.2% (4-12) Eosinophils (%) (Auto) 0.6% (0-5) Basophils (%) (Auto) 0.1% (0-3) Sodium Level 140mEq/L (134-144) Potassium Level 4.2mEq/L (3.5-5.2) Chloride Level 101mEq/L (97-108) Carbon Dioxide Level 26mmol/L (18-29) Blood Urea Nitrogen 13mg/dL (8-27) Creatinine 0.60mg/dL (0.76-1.27) Estimat Glomerular Filtration Rate 143mL/min (>59) Glucose Level 111mg/dL (60-99) Calcium Level 9.0mg/dL (8.5-10.1) Discharge Medications Discharge Medications Carisoprodol (Soma) 350 Mg Tablet 350 MG PO TID Prescribed by: LAMONT ZULUAGA DO Clonazepam (Klonopin) 1 Mg Tablet 1 MG PO QID (Reported) Gabapentin (Gabapentin) 300 Mg Capsule 300 PO HS (Reported) Levofloxacin (Levofloxacin) 750 Mg Tablet 750 MG PO DAILY Prescribed by: SHALOM BARBOZA MD Morphine Sulfate (Morphine Sulfate) 30 Mg Tablet 30 MG PO BID TAKE WITH 15 MG TABLET (=45 MG TOTAL) Prescribed by: SHALOM BARBOZA MD Morphine Sulfate (Morphine Sulfate) 15 Mg Tablet 15 MG PO BID TAKE WITH 30 MG TABLET (=45 MG TOTAL) Prescribed by: SHALOM BARBOZA MD Ondansetron (Zofran) 4 Mg Tablet 4 MG PO QID (Reported) STAGGER W/ COMPAZINE Pantoprazole DR (Protonix) 20 Mg Tablet 20 MG PO DAILY Prescribed by: SHALOM BARBOZA MD Prochlorperazine Maleate (Prochlorperazine) 10 Mg Tablet 10 MG PO QID (Reported ) STAGGER WITH ZOFRAN Quetiapine Fumarate (Seroquel) 200 Mg Tablet 200 MG PO HS (Reported) TAKE WITH 50 MG TABLET (=250 MG TOTAL) Quetiapine Fumarate (Quetiapine Fumarate) 50 Mg Tablet 50 MG PO HS (Reported) TAKE WITH 200 MG TABLET (=250 MG TOTAL) As needed Oxycodone (Roxicodone) 30 Mg Tablet 30 MG PO Q3HR PRN PRN For Pain TAKES SCHEDULED Prescribed by: SHALOM BARBOZA MD Followup Plan Disposition: Home with hospice to followup Follow-up plan 1. Followup with primary care provider (Dr. Malagon) or with your oncologist ( Dr. Bueno) in 5-7 days or may continue to follow with hospice if decide to continue with comfort care only. Discharge Diet: No restrictions Discharge Activity: No restrictions Patient Instructions Seek immediate medical attention or followup with hospice if any new or worsening signs or symptoms occur. Follow-up Provider: Dayami Malagon MD Provider: Yevgeniy Bueno MD Time spent 40 min copies to: Dayami Malagon MD; Yevgeniy Bueno MD, Masoud Apr 15, 2017 18:59
--- NOTE | 2017-04-17 08:59 | NUR ---
Palliative care note D/A: Note that pt was just dc'ed from [facility] on 04/15/17. Had a scheduled OPC appt today with Dr. Land at 1100. ASSISTANT HEAD CASHIER notes indicate that he had [facility] info visit at the family home on 04/16/17. Phone call to family home, discuss with spouse. Extremely difficult to understand her as her phone is quite muffled. This worker believes that spouse indicated pt did not sign on to [facility] yet. Has an appt with Dr. Knox today to discuss plans. Spouse aware cancelled OPC appt for today and that she or pt can call back to reschedule, if that is what they decide they wish to do. Have alerted Dr. Land. P: Palliative care to follow as needed. Audra TORRES CCM Addendum: 04/17/17 at 1154 by JUAN CARLOS LINDSEY PC note amendment D/A: Chart reviewed. Note that [facility] to make appt with Dr. Bueno. Also needing pain med refill. Note that Dr. Bueno is in [place] today and he is unable to meet with pt. Pt to meet with [facility] today at 1130. Have left message for Tigre in oncology about all of the above. Thought is that perhaps he can assist with getting family connected quickly to Dr. Hays if they are unable to receive desired info from [facility]. This worker is attempting to discern need for [facility] and med/symptom management vs. OPC vs oncology. P: Palliative care to follow. Audra TORRES CCM Addendum: 04/17/17 at 1211 by JUAN CARLOS WEISS PC note amendment Case discussed with Dr. Land. asif
== END 2017-04-15 12:40 | disposition home health service (06) | DRG 193 ==
LOC: SED 19:32 → MPC 21:38
PROVIDERS: ADMIT Internal Medicine; ATTEND Internal Medicine
DX: J18.9 Pneumonia, unspecified organism (principal); G93.41 Metabolic encephalopathy; C34.90 Malignant neoplasm of unspecified part of unspecified bronchus or lung; C77.9 Secondary and unspecified malignant neoplasm of lymph node, unspecified; C78.7 Secondary malignant neoplasm of liver and intrahepatic bile duct; C79.51 Secondary malignant neoplasm of bone; C79.31 Secondary malignant neoplasm of brain; F11.20 Opioid dependence, uncomplicated; Z86.711 Personal history of pulmonary embolism; Z86.718 Personal history of other venous thrombosis and embolism; Z95.1 Presence of aortocoronary bypass graft; Z95.2 Presence of prosthetic heart valve; F17.210 Nicotine dependence, cigarettes, uncomplicated; D64.9 Anemia, unspecified; F41.9 Anxiety disorder, unspecified; F32.9 Major depressive disorder, single episode, unspecified; Z51.5 Encounter for palliative care; Z92.21 Personal history of antineoplastic chemotherapy; Z92.3 Personal history of irradiation; I50.9 Heart failure, unspecified; Z66 Do not resuscitate; G89.3 Neoplasm related pain (acute) (chronic)